=== PATIENT | female | born 1955 | race Caucasian/White ===

== ENCOUNTER 2017-08-22 17:04 | Emergency (ER) | payer MEDICARE, SELFPAY ==
[2017-08-22 17:12] VITALS: BP 130/78; PULSE 101; RESP 20; TEMP 36.5; O2SAT 98; BMI 20.5
--- NOTE | 2017-08-22 18:18 | ED.DENTAL ---
HPI - Dental/Oral <CRYSTAL Augustin - Last Filed: 08/22/17 21:03> General Chief complaint: Dental/Oral Stated complaint: TEETH HURT Time Seen by Provider: 08/22/17 17:25 Source: patient Mode of arrival: ambulatory Limitations: no limitations History of Present Illness HPI Narrative: Patient presents with tooth pain. She is concerned about swelling of her right lower molars. She is afraid she is developing an infection. She has not seen a dentist for a long time. She states she is trying to get in with 1 in about 2 days. She denies fevers at this time. She complains severe pain. She denies nausea or vomiting. She states she feels like her right lower jaw is swollen. She is specially concerned because she is on Enbrel for her arthritis. Related Data Previous Rx's Medication Instructions Recorded penicillin V potassium 500 mg PO TID 10 Days #30 tab 08/22/17 tramadol 25 mg PO Q6H PRN #5 tab 08/22/17 Allergies Allergy/AdvReac Type Severity Reaction Status Date / Time No Known Drug Allergies Allergy Verified 08/22/17 17:20 Review of Systems <CRYSTAL Augustin - Last Filed: 08/22/17 21:03> Review of Systems GENERAL: Denies chills, fatigue, malaise, fever, sweats. HEENT: See HPI RESPIRATORY: Denies dyspnea, cough, wheezing, hemoptysis, sputum. CARDIOVASCULAR: Denies chest pain, palpitations, orthopnea, edema, GASTROINTESTINAL: Denies nausea, vomiting, abdominal pain, diarrhea, constipation, melena. : Denies dysuria, frequency, incontinence, hematuria, urinary retention. MUSCULOSKELETAL: denies weakness, joint pain, or bony pain SKIN: Denies rash, skin lesions, or other NEUROLOGIC: Denies weakness, headache, numbness, change in speech, confusion, seizures, incoordination. PSYCHIATRIC: No concerning psychosocial issues. 12 point review of systems is negative except for those stated above Exam <CRYSTAL Augustin - Last Filed: 08/22/17 21:03> Narrative Exam Narrative: GENERAL: This is a well-nourished, well-developed patient, sitting in chair and hallway. HEAD: Atraumatic. Normocephalic. No temporal or scalp tenderness. EYES: Pupils equal round and reactive. Extraocular motions intact. No scleral icterus. No injection or drainage. ENT: Nose without bleeding, purulent drainage or septal hematoma. Throat without erythema, tonsillar hypertrophy or exudate. Uvula midline. Airway patent. Noted to be missing molar on right lower side. Right gumline erythematous. No noted exudate. Painful to palpation at right lower gum line. Gum lines and jaw symmetrical. NECK: Trachea midline. No JVD or lymphadenopathy. Supple, nontender, no meningeal signs. CARDIOVASCULAR: Regular rate and rhythm without murmurs, gallops, or rubs. RESPIRATORY: Clear to auscultation. Breath sounds equal bilaterally. No wheezes, rales, or rhonchi. GASTROINTESTINAL: Abdomen soft, non-tender, nondistended. No hepato-splenomegaly, or palpable masses. No guarding. EXTREMITIES: No clubbing, cyanosis, or edema. No joint tenderness, effusion, or edema noted. BACK: Nontender without deformity or crepitance. No flank tenderness. NEURO: AOx3. SKIN: No rash or erythema. No erythema, ecchymosis or swelling noted right jawline. Initial Vital Signs Initial Vital Signs: Vital Signs Temperature 97.7 F 08/22/17 17:12 Pulse Rate 101 H 08/22/17 17:12 Respiratory Rate 20 08/22/17 17:12 Blood Pressure 130/78 H 08/22/17 17:12 Pulse Oximetry 98 08/22/17 17:12 <Velia Soriano DO - Last Filed: 08/23/17 07:41> Initial Vital Signs Initial Vital Signs: Vital Signs Temperature 97.7 F 08/22/17 17:12 Pulse Rate 101 H 08/22/17 17:12 Respiratory Rate 20 08/22/17 17:12 Blood Pressure 130/78 H 08/22/17 17:12 Pulse Oximetry 98 08/22/17 17:12 Course <TATI Augustin - Last Filed: 08/22/17 21:03> Hospital Course: Patient presents with right lower dental pain. Patient was examined, identifying erythematous gum line with slight swelling of the gum line. However her jawline is symmetrical to the other side. Vital Signs - 8 hr 08/22/17 17:12 Temperature 97.7 F Pulse Rate 101 H Respiratory Rate 20 Blood Pressure 130/78 H Pulse Oximetry 98 <Velia Soriano DO - Last Filed: 08/23/17 07:41> Vital Signs - 8 hr 08/22/17 17:12 Temperature 97.7 F Pulse Rate 101 H Respiratory Rate 20 Blood Pressure 130/78 H Pulse Oximetry 98 MDM - Dental/Oral <DARLENE Augustin-BC - Last Filed: 08/22/17 21:03> [facility] Narrative Medical decision making narrative: Given pain to palpation right gum line an erythematous gum line, will treat patient for dental abscess. There was no obvious abscess to be drained today. I have a low threshold for treatment given the medications that she is on. Will use penicillin t.i.d. as per up-to-date. Strongly suggest follow-up with dentist as planned in a few days. Discussed return precautions of fever, nausea, vomiting, diarrhea, swelling of jaw line. She was afebrile and hemodynamically stable in the emergency department. I did give her a small pain medication prescription for the pain. Discharge Plan Departure Patient Disposition: Home, Self-Care Clinical Impression: Dental abscess Discharge Date/Time: 08/22/17 18:35 Interventions: ED Discharge Assessment Last Done: 08/22/17 18:35 Instructions: Tooth Abscess Activity Restrictions/Additional Instructions: I am starting you on antibiotics for an infection. However there is nothing palpable to drain. Please take the penicillin as discussed 3 times a day. I also gave you a small prescription for pain medication call tramadol. This is narcotic please do not take this and drive. Continue ice and [id number] pain medications as able. Please follow-up with a dentist. Prescriptions: New penicillin V potassium 500 mg tablet 500 mg PO TID 10 Days Qty: 30 RF: 0 tramadol 50 mg tablet 25 mg PO Q6H PRN (Reason: pain) Qty: 5 RF: 0 <Velia Soriano DO - Last Filed: 08/23/17 07:41> Cosign ED Attending Cosignature Attestation: I was immediately available in the department for consultation. Documentation has been reviewed. I agree with assessment and plan.
--- NOTE | 2017-08-22 18:27 | ED_ITS ---
HPI - Dental/Oral <CRYSTAL Augustin - Last Filed: 08/22/17 21:03> General Chief complaint: Dental/Oral Stated complaint: TEETH HURT Time Seen by Provider: 08/22/17 17:25 Source: patient Mode of arrival: ambulatory Limitations: no limitations History of Present Illness HPI Narrative: Patient presents with tooth pain. She is concerned about swelling of her right lower molars. She is afraid she is developing an infection. She has not seen a dentist for a long time. She states she is trying to get in with 1 in about 2 days. She denies fevers at this time. She complains severe pain. She denies nausea or vomiting. She states she feels like her right lower jaw is swollen. She is specially concerned because she is on Enbrel for her arthritis. Related Data Previous Rx's Medication Instructions Recorded penicillin V potassium 500 mg PO TID 10 Days #30 tab 08/22/17 tramadol 25 mg PO Q6H PRN #5 tab 08/22/17 Allergies Allergy/AdvReac Type Severity Reaction Status Date / Time No Known Drug Allergies Allergy Verified 08/22/17 17:20 Review of Systems <CRYSTAL Augustin - Last Filed: 08/22/17 21:03> Review of Systems GENERAL: Denies chills, fatigue, malaise, fever, sweats. HEENT: See HPI RESPIRATORY: Denies dyspnea, cough, wheezing, hemoptysis, sputum. CARDIOVASCULAR: Denies chest pain, palpitations, orthopnea, edema, GASTROINTESTINAL: Denies nausea, vomiting, abdominal pain, diarrhea, constipation, melena. : Denies dysuria, frequency, incontinence, hematuria, urinary retention. MUSCULOSKELETAL: denies weakness, joint pain, or bony pain SKIN: Denies rash, skin lesions, or other NEUROLOGIC: Denies weakness, headache, numbness, change in speech, confusion, seizures, incoordination. PSYCHIATRIC: No concerning psychosocial issues. 12 point review of systems is negative except for those stated above Exam <CRYSTAL Augustin - Last Filed: 08/22/17 21:03> Narrative Exam Narrative: GENERAL: This is a well-nourished, well-developed patient, sitting in chair and hallway. HEAD: Atraumatic. Normocephalic. No temporal or scalp tenderness. EYES: Pupils equal round and reactive. Extraocular motions intact. No scleral icterus. No injection or drainage. ENT: Nose without bleeding, purulent drainage or septal hematoma. Throat without erythema, tonsillar hypertrophy or exudate. Uvula midline. Airway patent. Noted to be missing molar on right lower side. Right gumline erythematous. No noted exudate. Painful to palpation at right lower gum line. Gum lines and jaw symmetrical. NECK: Trachea midline. No JVD or lymphadenopathy. Supple, nontender, no meningeal signs. CARDIOVASCULAR: Regular rate and rhythm without murmurs, gallops, or rubs. RESPIRATORY: Clear to auscultation. Breath sounds equal bilaterally. No wheezes , rales, or rhonchi. GASTROINTESTINAL: Abdomen soft, non-tender, nondistended. No hepato-splenomegaly , or palpable masses. No guarding. EXTREMITIES: No clubbing, cyanosis, or edema. No joint tenderness, effusion, or edema noted. BACK: Nontender without deformity or crepitance. No flank tenderness. NEURO: AOx3. SKIN: No rash or erythema. No erythema, ecchymosis or swelling noted right jawline. Initial Vital Signs Initial Vital Signs: Vital Signs Temperature 97.7 F 08/22/17 17:12 Pulse Rate 101 H 08/22/17 17:12 Respiratory Rate 20 08/22/17 17:12 Blood Pressure 130/78 H 08/22/17 17:12 Pulse Oximetry 98 08/22/17 17:12 <Velia Soriano DO - Last Filed: 08/23/17 07:41> Initial Vital Signs Initial Vital Signs: Vital Signs Temperature 97.7 F 08/22/17 17:12 Pulse Rate 101 H 08/22/17 17:12 Respiratory Rate 20 08/22/17 17:12 Blood Pressure 130/78 H 08/22/17 17:12 Pulse Oximetry 98 08/22/17 17:12 Course <TATI Augustin - Last Filed: 08/22/17 21:03> Hospital Course: Patient presents with right lower dental pain. Patient was examined, identifying erythematous gum line with slight swelling of the gum line. However her jawline is symmetrical to the other side. Vital Signs - 8 hr 08/22/17 17:12 Temperature 97.7 F Pulse Rate 101 H Respiratory Rate 20 Blood Pressure 130/78 H Pulse Oximetry 98 <Velia Soriano DO - Last Filed: 08/23/17 07:41> Vital Signs - 8 hr 08/22/17 17:12 Temperature 97.7 F Pulse Rate 101 H Respiratory Rate 20 Blood Pressure 130/78 H Pulse Oximetry 98 MDM - Dental/Oral <DARLENE Augustin-BC - Last Filed: 08/22/17 21:03> [facility] Narrative Medical decision making narrative: Given pain to palpation right gum line an erythematous gum line, will treat patient for dental abscess. There was no obvious abscess to be drained today. I have a low threshold for treatment given the medications that she is on. Will use penicillin t.i.d. as per up-to- date. Strongly suggest follow-up with dentist as planned in a few days. Discussed return precautions of fever, nausea, vomiting, diarrhea, swelling of jaw line. She was afebrile and hemodynamically stable in the emergency department. I did give her a small pain medication prescription for the pain. Discharge Plan Departure Patient Disposition: Home, Self-Care Clinical Impression: Dental abscess Discharge Date/Time: 08/22/17 18:35 Interventions: ED Discharge Assessment Last Done: 08/22/17 18:35 Instructions: Tooth Abscess Activity Restrictions/Additional Instructions: I am starting you on antibiotics for an infection. However there is nothing palpable to drain. Please take the penicillin as discussed 3 times a day. I also gave you a small prescription for pain medication call tramadol. This is narcotic please do not take this and drive. Continue ice and [id number] pain medications as able. Please follow-up with a dentist. Prescriptions: New penicillin V potassium 500 mg tablet 500 mg PO TID 10 Days Qty: 30 RF: 0 tramadol 50 mg tablet 25 mg PO Q6H PRN (Reason: pain) Qty: 5 RF: 0 <Velia Soriano DO - Last Filed: 08/23/17 07:41> Cosign ED Attending Cosignature Attestation: I was immediately available in the department for consultation. Documentation has been reviewed. I agree with assessment and plan.
== END 2017-08-22 18:35 | disposition home or self-care (01) ==
PROVIDERS: Emergency Provider Nurse Practitioner Family
DX: K04.7 Periapical abscess without sinus (principal)
CPT/HCPCS: 99282

== ENCOUNTER 2022-12-07 16:01 | Emergency (ER) | payer MEDICARE, MEDICAID, SELFPAY ==
[2022-12-07 16:04] VITALS: BP 143/65; PULSE 83; RESP 18; TEMP 37.2; O2SAT 97; BMI 20.5
[2022-12-07 16:50] LABS: Add Manual Diff / Slide Review NO; Basophils Absolute Auto 0 /uL (0-100); Basophils Percent Auto 0.8 % (0-2); Eosinophils Absolute Auto 100 /uL (0-450); Eosinophils Percent Auto 2.8 % (2-4); Hematocrit 42.8 % (36-46); Hemoglobin 14.9 g/dL (12.0-16.0); Lymphocytes Absolute Auto 1000 /uL (1100-4500); Lymphocytes Percent Auto 26.3 % (25-40); Mean Corpuscular HGB Conc 34.9 % (30-36); Mean Corpuscular Hemoglobin 34.1 PG (26-34); Mean Corpuscular Volume 97.6 fL (80-100); Monocytes Absolute Auto 500 /uL (0-900); Monocytes Percent Auto 12.8 % (3-14); Neutrophils Absolute Auto 2200 /uL (1500-7000); Neutrophils Percent Auto 57.3 % (50-75); Platelet Count 142 X10^3/uL (150-400); Red Blood Cell Count 4.38 X10^6/uL (4.0-5.2); Red Cell Distribution Width 13.1 % (11.6-14.8); White Blood Cell Count 3.8 X10^3/uL (4.5-11.0)
[2022-12-07 16:55] LABS: Alanine Aminotransferase 27 IU/L (<35); Albumin 4.4 g/dL (3.5-5.0); Albumin Globulin Ratio 1.7 (1.0-2.8); Alkaline Phosphatase 63 U/L (38-126); Aspartate Aminotransferase 30 IU/L (14-36); BUN Creatinine Ratio 19.3 (6-22); Bilirubin Total 0.4 mg/dL (0.2-1.3); Blood Urea Nitrogen 11 mg/dL (7-17); Carbon Dioxide 29 mmol/L (22-32); Chloride 105 mmol/L (98-107); Estimated Glomerular Filt Rate > 60 mL/min (>60); Globulin 2.6 g/dL (1.7-4.1); Glucose 82 mg/dL (80-110); HEMOLYSIS < 15 (0-50); Lipase 142 U/L (23-300); Potassium 4.2 mmol/L (3.4-5.1); Sodium 139 mmol/L (137-145)
--- NOTE | 2022-12-07 17:26 | DI.CT.S_ITS ---
PROCEDURE: CT ANGIO CHEST PE PROTOCOL INDICATIONS: recent lung cancer, new painful lump on posterior ribs TECHNIQUE: After the administration of intravenous contrast, 2 mm thick sections acquired from the pulmonary apices to the posterior costophrenic angles. 3-dimensional maximum intensity projection (MIP) coronal and sagittal reformats were then acquired through the thorax. For radiation dose reduction, the following was used: automated exposure control, adjustment of mA and/or kV according to patient size. COMPARISON: None. FINDINGS: Image quality: Excellent. Pulmonary arteries: Pulmonary arteries are normal in size, and demonstrate no intraluminal filling defects to suggest central pulmonary embolism. Lungs and pleura: Emphysematous changes as well as reticular opacities consistent with likely fibrotic change are present. Prominent appearance of honeycombing is present in the left lower lobe. Small patchy areas of superimposed opacity are present. No pleural effusions or pneumothorax. Central and peripheral airways are patent. Mediastinum: Heart size is enlarged with minimal pericardial effusion. No mediastinal or hilar adenopathy. Thoracic aorta is normal in caliber and enhancement. Esophagus is normal in caliber, without hiatal hernia. Bones and chest wall: No suspicious bony lesions. Ribs and thoracic spine appear intact throughout. Thyroid gland demonstrates scattered low-attenuation foci predominantly within the left lobe. No priors are available for comparison.. No axillary or supraclavicular adenopathy. Abdomen: Visualized upper abdominal solid organs appear normal in the early arterial phase of enhancement. IMPRESSION: Chronic pulmonary changes as described above. Mild appearance of patchy opacity superimposed in the left base. This could be related to chronic change. However, development of pneumonia, atelectasis or potentially malignancy cannot be definitively excluded. Short interval imaging follow-up is recommended. No pulmonary embolism. Dictated by: Darcy Luke M.D. on 12/07/2022 at 18:21 Approved by: Darcy Luke M.D. on 12/07/2022 at 18:23
[2022-12-07 17:43] VITALS: BP 177/96; PULSE 73
[2022-12-07 18:00] VITALS: BP 156/85; PULSE 67; O2SAT 97
[2022-12-07] MEDS: MORPHINE 2 MG/ML INJ IV (18:01)
[2022-12-07] MEDS: ONDANSETRON 4 MG/2 ML INJ IV (18:01)
[2022-12-07] MEDS: KETOROLAC 30 MG/ML VIAL 15 MG IV (18:01)
[2022-12-07] MEDS: SODIUM CHLORIDE 0.9% 500 ML 1000 ML IV (18:02)
--- NOTE | 2022-12-07 18:15 | ED.BACK ---
HPI - Back Pain/Injury <Mary Beth Rizvi PA-C - Last Filed: 12/07/22 18:59> General Chief Complaint: Back Pain/Injury Stated Complaint: sent by hospital for special care/back pain/lump Time Seen by Provider: 12/07/22 17:15 Source: patient History of Present Illness HPI Narrative: Patient is a 67-year-old female with a history of lung cancer which she reports is in the left lower lobe. She received radiation in June of this year and is due for a PET scan because she reports the radiation was not as successful as he had hoped. She uses injectable medications to control her rheumatoid arthritis, which make her immunosuppressed. She has had 2 weeks of left posterior rib pain worse with deep breaths or with twisting movements. She does not remember any particular incident or trauma that started this. It started while she was on an airplane and has continued ever since. She has noticed a lump that is slowly growing in size over the site of pain. She is tried Tylenol and ibuprofen occasionally but they do not seem to help. She denies any fever, new shortness of breath, chest pain, nausea vomiting, urinary symptoms. She presented to the walk-in clinic today for assessment but was sent to the emergency room for further investigation. Related Data Home Medications Medication Instructions Recorded Confirmed cyclobenzaprine 10 mg tablet 10 mg PO BID 12/13/17 12/07/22 hydroxychloroquine 200 mg tablet 200 mg PO DAILY 12/13/17 12/07/22 ibuprofen 600 mg tablet 600 mg PO TID 12/13/17 12/07/22 pregabalin 75 mg capsule (Lyrica) 75 mg PO BID 12/13/17 12/07/22 sulfasalazine 500 mg tablet 1 gram PO DAILY 12/13/17 12/07/22 lisinopril 10 mg tablet 10 mg PO DAILY 12/07/22 12/07/22 sulfasalazine 500 mg 1,000 mg PO BID 12/07/22 12/07/22 tablet,delayed release tocilizumab [Actemra ACTPen] SUBCUT 12/07/22 12/07/22 trazodone 100 mg tablet 100 - 200 mg PO ONCE PM insomnia 12/07/22 12/07/22 venlafaxine 225 mg tablet,extended 225 mg PO DAILY depressive disorder 12/07/22 12/07/22 release 24 hr Allergies Allergy/AdvReac Type Severity Reaction Status Date / Time No Known Drug Allergies Allergy Verified 12/07/22 15:36 Review of Systems <Mary Beth Rizvi PA-C - Last Filed: 12/07/22 18:59> Review of Systems ROS Unobtainable: All systems reviewed & are unremarkable except as noted in HPI and below Patient History <Mary Beth Rizvi PA-C - Last Filed: 12/07/22 18:59> Medical History 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 Well-developed patient, in no distress. NEURO: AOx3. HEAD: Atraumatic. Normocephalic. EYES: Pupils equal round and reactive. Extraocular motions intact. No scleral icterus. No injection or drainage. ENT: Nose without bleeding or purulent drainage. Airway patent. CARDIOVASCULAR: Regular rate and rhythm without murmurs, gallops, or rubs. RESPIRATORY: Left lower lobe crackles, no significant dyspnea with conversation. BACK: Soft swollen lump over left posterior lower ribs, no erythema or warmth concerning for cellulitis. No fluctuance. No midline spinal tenderness. EXTREMITIES: No edema or joint tenderness. SKIN: No rash or erythema of visible areas Initial Vital Signs Initial Vital Signs: Vital Signs Temperature 98.9 F 12/07/22 16:04 Pulse Rate 83 12/07/22 16:04 Respiratory Rate 18 12/07/22 16:04 Blood Pressure 143/65 H 12/07/22 16:04 Pulse Oximetry 97 12/07/22 16:04 Oxygen Delivery Method Room Air 12/07/22 16:04 <El Cordon MD - Last Filed: 12/15/22 08:45> Initial Vital Signs Initial Vital Signs: Vital Signs Temperature 98.9 F 12/07/22 16:04 Pulse Rate 83 12/07/22 16:04 Respiratory Rate 18 12/07/22 16:04 Blood Pressure 143/65 H 12/07/22 16:04 Pulse Oximetry 97 12/07/22 16:04 Oxygen Delivery Method Room Air 12/07/22 16:04 Course <Mary Beth Rizvi PA-C - Last Filed: 12/07/22 18:59> Orders Ordered: Discontinued Medications Sodium Chloride (Normal Saline 0.9%) 500 mls @ 1,000 mls/hr IV BOLUS ONE Stop: 12/07/22 17:55 Last Infusion: 12/07/22 19:07 Dose: 0 mls/hr Documented By: Admin: 12/07/22 18:02 Dose: 1,000 mls/hr Documented By: EMMANUELLE Ketorolac Tromethamine (Ketorolac 30 Mg/Ml Vial) 15 mg IV NOW ONE Stop: 12/07/22 17:27 Last Admin: 12/07/22 18:01 Dose: 15 mg Documented By: EMMANUELLE Morphine Sulfate (Morphine 2 Mg/Ml Inj) 2 mg IV NOW ONE Stop: 12/07/22 17:27 Last Admin: 12/07/22 18:01 Dose: 2 mg Documented By: EMMANUELLE Ondansetron HCl (Ondansetron 4 Mg Odt) 4 mg PO NOW PRN PRN Reason: Nausea And Vomiting Ondansetron HCl (Ondansetron 4 Mg/2 Ml Inj) 4 mg IV NOW PRN PRN Reason: Nausea And Vomiting Last Admin: 12/07/22 18:01 Dose: 4 mg Documented By: NL Vital Signs Vital signs: Vital Signs - 8 hr 12/07/22 16:04 Temperature 98.9 F Pulse Rate 83 Respiratory Rate 18 Blood Pressure 143/65 H Pulse Oximetry 97 Oxygen Delivery Method Room Air <El Cordon MD - Last Filed: 12/15/22 08:45> Orders Ordered: Discontinued Medications Sodium Chloride (Normal Saline 0.9%) 500 mls @ 1,000 mls/hr IV BOLUS ONE Stop: 12/07/22 17:55 Last Infusion: 12/07/22 19:07 Dose: 0 mls/hr Documented By: Admin: 12/07/22 18:02 Dose: 1,000 mls/hr Documented By: EMMANUELLE Ketorolac Tromethamine (Ketorolac 30 Mg/Ml Vial) 15 mg IV NOW ONE Stop: 12/07/22 17:27 Last Admin: 12/07/22 18:01 Dose: 15 mg Documented By: EMMANUELLE Morphine Sulfate (Morphine 2 Mg/Ml Inj) 2 mg IV NOW ONE Stop: 12/07/22 17:27 Last Admin: 12/07/22 18:01 Dose: 2 mg Documented By: EMMANUELLE Ondansetron HCl (Ondansetron 4 Mg Odt) 4 mg PO NOW PRN PRN Reason: Nausea And Vomiting Ondansetron HCl (Ondansetron 4 Mg/2 Ml Inj) 4 mg IV NOW PRN PRN Reason: Nausea And Vomiting Last Admin: 12/07/22 18:01 Dose: 4 mg Documented By: EMMANUELLE Vital Signs Vital signs: Vital Signs - 8 hr 12/07/22 16:04 Temperature 98.9 F Pulse Rate 83 Respiratory Rate 18 Blood Pressure 143/65 H Pulse Oximetry 97 Oxygen Delivery Method Room Air MDM - Back Pain/Injury <Mary Beth Rizvi PA-C - Last Filed: 12/07/22 18:59> Lab Data 12/07/22 16:07 12/07/22 16:07 Labs: Lab Results 12/07/22 12/07/22 Range/Units 16:07 16:07 WBC 3.8 L (4.5-11.0) X10^3/uL RBC 4.38 (4.0-5.2) X10^6/uL Hgb 14.9 (12.0-16.0) g/dL Hct 42.8 (36-46) % MCV 97.6 (80-100) fL MCH 34.1 H (26-34) PG MCHC 34.9 (30-36) % RDW 13.1 (11.6-14.8) % Plt Count 142 L (150-400) X10^3/uL Neut % (Auto) 57.3 (50-75) % Lymph % (Auto) 26.3 (25-40) % [place] % (Auto) 12.8 (3-14) % Eos % (Auto) 2.8 (2-4) % Baso % (Auto) 0.8 (0-2) % Neut # (Auto) 2200 (3322-7325) /uL Lymph # (Auto) 1000 L (6064-4044) /uL [place] # (Auto) 500 (0-900) /uL Eos # (Auto) 100 (0-450) /uL Baso # (Auto) 0 (0-100) /uL Sodium 139 (137-145) mmol/L Potassium 4.2 (3.4-5.1) mmol/L Chloride 105 (98-107) mmol/L Carbon Dioxide 29 (22-32) mmol/L BUN 11 (7-17) mg/dL Creatinine 0.57 (0.52-1.04) mg/dL Estimated GFR > 60 (>60) mL/min BUN/Creatinine Ratio 19.3 (6-22) Glucose 82 (80-110) mg/dL Calcium 10.0 (8.4-10.2) mg/dL Total Bilirubin 0.4 (0.2-1.3) mg/dL AST 30 (14-36) IU/L ALT 27 (<35) IU/L Alkaline Phosphatase 63 (38-126) U/L Total Protein 7.0 (6.3-8.2) g/dL Albumin 4.4 (3.5-5.0) g/dL Globulin 2.6 (1.7-4.1) g/dL Albumin/Globulin Ratio 1.7 (1.0-2.8) Lipase 142 (23-300) U/L Imaging Data CT scan - chest: Radiologist's Impression: PROCEDURE:? CT ANGIO CHEST PE PROTOCOL ? INDICATIONS:? recent lung cancer, new painful lump on posterior ribs ? TECHNIQUE:? After the administration of intravenous contrast, 2 mm thick sections acquired from the pulmonary apices to the posterior costophrenic angles.? 3-dimensional maximum intensity projection (MIP) coronal and sagittal reformats were then acquired through the thorax.? For radiation dose reduction, the following was used:? automated exposure control, adjustment of mA and/or kV according to patient size.? ? COMPARISON:? None. ? FINDINGS:? Image quality:? Excellent.? ? Pulmonary arteries:? Pulmonary arteries are normal in size, and demonstrate no intraluminal filling defects to suggest central pulmonary embolism.? ? Lungs and pleura:? Emphysematous changes as well as reticular opacities consistent with likely fibrotic change are present.? Prominent appearance of honeycombing is present in the left lower lobe.? Small patchy areas of superimposed opacity are present.? No pleural effusions or pneumothorax.? Central and peripheral airways are patent.? ? Mediastinum:? Heart size is enlarged with minimal pericardial effusion.? No mediastinal or hilar adenopathy.? Thoracic aorta is normal in caliber and enhancement.? Esophagus is normal in caliber, without hiatal hernia.? ? Bones and chest wall:? No suspicious bony lesions.? Ribs and thoracic spine appear intact throughout.? Thyroid gland demonstrates scattered low-attenuation foci predominantly within the left lobe.? No priors are available for comparison..? No axillary or supraclavicular adenopathy.? ? Abdomen:? Visualized upper abdominal solid organs appear normal in the early arterial phase of enhancement.? ? IMPRESSION:? ? Chronic pulmonary changes as described above.? Mild appearance of patchy opacity superimposed in the left base.? This could be related to chronic change.? However, development of pneumonia, atelectasis or potentially malignancy cannot be definitively excluded.? Short interval imaging follow-up is recommended. ? No pulmonary embolism. ? ? Dictated by: Darcy Luke M.D. on 12/07/2022 at 18:21 ? ? Approved by: Darcy Luke M.D. on 12/07/2022 at 18:23 ? MDM Narrative Medical decision making narrative: Multiple etiologies for patient's symptoms considered including, but not limited to: Cancer invasion of the chest wall, rib fractures, abscess, complication of radiation therapy. Labs Show mild leukopenia and lymphocytopenia, likely related to her rheumatoid arthritis treatment and/or cancer treatment. No acute abnormalities of clinical significance to today's problem. CTA PE study completed after discussion with Dr. Cordon and does not show any PE or lesion in the posterior chest wall. It does show changes consistent with emphysema, fibrosis and lung cancer. Advised pain management with patient, to include ibuprofen, tylenol and lidocaine patches. Suggested she follow-up with her oncologist to investigate whether the symptoms maybe secondary to her lung cancer or radiation. Patient's symptoms improved over duration of stay with above-stated therapies. Findings and discharge diagnosis discussed with patient/family followed by verbalization of understanding Return precautions discussed with patient/family whom verbalize understanding of diagnosis and plan <El Cordon MD - Last Filed: 12/15/22 08:45> Lab Data Labs: Lab Results 12/07/22 12/07/22 Range/Units 16:07 16:07 WBC 3.8 L (4.5-11.0) X10^3/uL RBC 4.38 (4.0-5.2) X10^6/uL Hgb 14.9 (12.0-16.0) g/dL Hct 42.8 (36-46) % MCV 97.6 (80-100) fL MCH 34.1 H (26-34) PG MCHC 34.9 (30-36) % RDW 13.1 (11.6-14.8) % Plt Count 142 L (150-400) X10^3/uL Neut % (Auto) 57.3 (50-75) % Lymph % (Auto) 26.3 (25-40) % [place] % (Auto) 12.8 (3-14) % Eos % (Auto) 2.8 (2-4) % Baso % (Auto) 0.8 (0-2) % Neut # (Auto) 2200 (9599-7095) /uL Lymph # (Auto) 1000 L (1882-3496) /uL [place] # (Auto) 500 (0-900) /uL Eos # (Auto) 100 (0-450) /uL Baso # (Auto) 0 (0-100) /uL Sodium 139 (137-145) mmol/L Potassium 4.2 (3.4-5.1) mmol/L Chloride 105 (98-107) mmol/L Carbon Dioxide 29 (22-32) mmol/L BUN 11 (7-17) mg/dL Creatinine 0.57 (0.52-1.04) mg/dL Estimated GFR > 60 (>60) mL/min BUN/Creatinine Ratio 19.3 (6-22) Glucose 82 (80-110) mg/dL Calcium 10.0 (8.4-10.2) mg/dL Total Bilirubin 0.4 (0.2-1.3) mg/dL AST 30 (14-36) IU/L ALT 27 (<35) IU/L Alkaline Phosphatase 63 (38-126) U/L Total Protein 7.0 (6.3-8.2) g/dL Albumin 4.4 (3.5-5.0) g/dL Globulin 2.6 (1.7-4.1) g/dL Albumin/Globulin Ratio 1.7 (1.0-2.8) Lipase 142 (23-300) U/L Discharge Plan Departure Patient Disposition: Home Clinical Impression: Lump of skin of back Instructions: DI for Back Spasm Activity Restrictions/Additional Instructions: *We did several investigations today to look into why you have a lump on your back. Your blood work does not look like you have an infection. The CT scan does not show any fluid collection or mass that would be causing this. Does not show any broken ribs. I suggest you try symptomatic care with ice or heat, Tylenol or ibuprofen, or lidocaine patches which you can buy [id number] at the drug store. I would contact your oncologist office and ask to have your CT scan from today transferred so they can reviewed at your next appointment and discuss whether this could possibly be related to your oncology care. Please return to the emergency department if you develop chest pain, new worsening shortness of breath or other concerning symptoms. It was a pleasure meeting today and I hope you feel better soon. *What to do: *Please continue to take your regular medications as directed. [ ] New medication prescriptions sent to your pharmacy: [ ] [ ] New medication written as a paper prescription [X] No new medications given *Please follow up with your primary care provider in 2-3 days, call for an appointment. Let them know you were seen in the Emergency Department and that we ask that you be seen in follow up. We will electronically transmit a record of today's note if your PCP is in our system *If you do not have a primary care provider please contact the [facility] Resource line at [phone]. They will ask some questions about your medical history and help get you set up with a doctor in the community. *Return to Emergency Department if you should have any new, worsening or concerning symptoms, such as [fever greater than 101 F, shaking chills, worsening pain, persistent vomiting or other concerning symptoms]. Prescriptions: No Action sulfasalazine 500 mg tablet 1 gram PO DAILY hydroxychloroquine 200 mg tablet 200 mg PO DAILY pregabalin [Lyrica] 75 mg capsule 75 mg PO BID cyclobenzaprine 10 mg tablet 10 mg PO BID ibuprofen 600 mg tablet 600 mg PO TID sulfasalazine 500 mg tablet,delayed release (DR/EC) 1,000 mg PO BID venlafaxine 225 mg tablet extended release 24hr 225 mg PO DAILY lisinopril 10 mg tablet 10 mg PO DAILY trazodone 100 mg tablet 100 - 200 mg PO ONCE PM tocilizumab [Actemra ACTPen] SUBCUT Referrals: Miscellaneous,DoctorMD [Primary Care Provider] - Stand Alone Forms: Patient Portal/API <El Cordon MD - Last Filed: 12/15/22 08:45> Cosign ED Attending Cosignature Attestation: I was immediately available in the department for consultation. ?This documentation has been reviewed and I agree with assessment and plan. Supervised by El Cordon MD
[2022-12-07 18:30] VITALS: BP 148/87; PULSE 68; O2SAT 97
[2022-12-07 19:00] VITALS: PULSE 74; O2SAT 96
[2022-12-07 19:03] VITALS: BP 148/80; PULSE 74; O2SAT 97
== END 2022-12-07 19:09 | disposition home or self-care (01) ==
PROVIDERS: Emergency Medicine; Emergency Provider Physician Assistant
DX: R22.2 Localized swelling, mass and lump, trunk (principal); R10.9 Unspecified abdominal pain
CPT/HCPCS: 36415; 71275; 80053; 83690; 85025; 93005; 93010; 96361; 96374; 96375; 99284; J1885; J2270; J2405; Q9967

== ENCOUNTER 2025-01-03 10:17 | Emergency (ER) | payer MEDICARE, MEDICAID, SELFPAY ==
[2025-01-03] VITALS (26 sets, daily range): BP systolic 129–196; BP diastolic 80–132; PULSE 66–91; RESP 22–46; TEMP 37; O2SAT 93–100
--- NOTE | 2025-01-03 10:22 | DI.CT.S_ITS ---
PROCEDURE: CT ANGIO HEAD AND NECK INDICATIONS: acute stroke TECHNIQUE: After the administration of intravenous contrast, 1 mm thick sections acquired from the aortic arch through the [place]. 3-dimensional pttiamd-buuhjyxhi-ijcpkngfrc (MIP) and/or volume rendering reformats were acquired of the central intracranial vasculature and neck separately. For radiation dose reduction, the following was used: automated exposure control, adjustment of mA and/or kV according to patient size. COMPARISON: [facility], CT, CT STROKE, 01/03/2025, 10:37. FINDINGS: Image quality: Diagnostic. Cerebral CT Angiogram: Internal carotid arteries: No acute findings. Intracranial ICA are patent with no significant stenosis. No occlusion. No aneurysm. 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 The distal right ELIDA is fed via a patent anterior communicating artery. No significant stenosis. No occlusion. No aneurysm. Middle cerebral arteries: Unremarkable. No significant stenosis. No occlusion. No aneurysm. Posterior cerebral arteries: type origin of the right [employer], a normal anatomic variant. No significant stenosis. No occlusion. No aneurysm. Basilar artery: Unremarkable. No significant stenosis. No occlusion. No aneurysm. Vertebral arteries: Unremarkable as visualized. Dural venous sinuses: Unremarkable given phase of enhancement. Other: Please see the separately dictated report from the noncontrast CT of the head performed at the same time. No abnormal intracranial arterial-phase enhancement. Mucous retention cyst in the right maxillary sinus. Neck CT Angiogram: Internal carotid arteries: Unremarkable. No significant stenosis. No dissection or occlusion. Common carotid arteries: Unremarkable. No significant stenosis. No dissection or occlusion. External carotid arteries: Unremarkable. No occlusion. Vertebral arteries: Unremarkable. No significant stenosis. No dissection or occlusion. Aortic Arch and Mediastinum: Partially visualized aortic arch unremarkable without evidence of aneurysm. Origins of the great vessels unremarkable. Other: Pleural-parenchymal scarring at the right lung apex with superimposed surgical clips. Biapical centrilobular and paraseptal emphysema. Multiple mildly enlarged mediastinal lymph nodes are present, for example measuring 1.1 cm in short axis in the precarinal region (2/338). 1.1 cm left thyroid nodule does not require dedicated imaging follow-up based on ACR guidelines. Multilevel degenerative changes in the included spine. IMPRESSION: No significant intracranial arterial abnormality is seen. No significant abnormality is seen within the arteries of the neck. Postsurgical changes in the right lung apex. Mildly enlarged mediastinal lymph nodes are nonspecific. Any quantitative measurements of stenosis were performed using NASCET criteria. Approved by: Enrique Enrique M.D. on 01/03/2025 at 11:12
--- NOTE | 2025-01-03 10:22 | DI.CT.S_ITS ---
PROCEDURE: CT STROKE INDICATIONS: acute stroke TECHNIQUE: Noncontrast 4.5 mm thick angled axial sections acquired from the foramen magnum to the vertex, with coronal reformats. For radiation dose reduction, the following was used: automated exposure control, adjustment of mA and/or kV according to patient size. COMPARISON: None. FINDINGS: Image quality: Diagnostic. CSF spaces: Basal cisterns are patent. No extra-axial fluid collections. The ventricles are symmetric in size and shape. Brain: No acute intracranial hemorrhage or mass effect. There is cerebral volume loss, with resultant ventricular and sulcal prominence. There are periventricular and deep white matter chronic small vessel ischemic changes. There is intracranial internal carotid artery atherosclerosis. Skull and face: Calvarium and visualized facial bones appear intact, without suspicious lesions. Sinuses: Visualized sinuses and mastoids are clear. IMPRESSION: No acute intracranial pathology. Findings were discussed with the referring provider, Dr. Regan, by telephone on 01/03/2025 at 10:45 AM. This study fulfills neurological imaging criteria for inclusion or exclusion of acute stroke therapies based on available published neurological guidelines. Approved by: Enrique Enrique M.D. on 01/03/2025 at 10:46
--- NOTE | 2025-01-03 10:24 | ED.NEUROSD ---
HPI - Neuro Symptoms/Deficit <Sean Regan MD - Last Filed: 01/20/25 08:03> General Chief Complaint: Altered Mental Status Stated Complaint: AMS Time Seen by Provider: 01/03/25 10:21 History of Present Illness HPI Narrative: This is a 61-year-old female with a known past medical history brought in by medics with altered mental status and neurologic deficits. Her last known well as unknown per medics ?sometime yesterday?. The patient was found outside of her apartment complex in the area were smokers [place]. It is unknown how long she had been there however I strongly doubt that she spent the night out there. The patient is unable to speak. At this point I do not have any available past medical history medications allergies etc.. Related Data Home Medications ?Medication ?Instructions ?Recorded ?Confirmed cyclobenzaprine 10 mg tablet 10 mg PO BID 12/13/17 12/07/22 hydroxychloroquine 200 mg tablet 200 mg PO DAILY 12/13/17 12/07/22 ibuprofen 600 mg tablet 600 mg PO TID 12/13/17 12/07/22 pregabalin 75 mg capsule (Lyrica) 75 mg PO BID 12/13/17 12/07/22 sulfasalazine 500 mg tablet 1 gram PO DAILY 12/13/17 12/07/22 lisinopril 10 mg tablet 10 mg PO DAILY 12/07/22 12/07/22 sulfasalazine 500 mg 1,000 mg PO BID 12/07/22 12/07/22 tablet,delayed release tocilizumab [Actemra ACTPen] SUBCUT 12/07/22 12/07/22 trazodone 100 mg tablet 100 - 200 mg PO ONCE PM insomnia 12/07/22 12/07/22 venlafaxine 225 mg tablet,extended 225 mg PO DAILY depressive disorder 12/07/22 12/07/22 release 24 hr Allergies Allergy/AdvReac Type Severity Reaction Status Date / Time No Known Drug Allergies Allergy Verified 01/06/25 11:02 Patient History <Sean Regan MD - Last Filed: 01/20/25 08:03> Medical History 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 Surgical History S/P lobectomy of lung Exam <Sean Regan MD - Last Filed: 01/20/25 08:03> Initial Vital Signs Initial Vital Signs: Vital Signs Temperature 98.6 F 01/03/25 10:35 Pulse Rate 85 01/03/25 10:35 Respiratory Rate 27 H 01/03/25 10:35 Blood Pressure 146/88 H 01/03/25 10:35 Pulse Oximetry 95 01/03/25 10:35 Oxygen Delivery Method Room Air 01/03/25 10:35 <Velia Soriano DO - Last Filed: 01/03/25 20:50> Initial Vital Signs Initial Vital Signs: Vital Signs Temperature 98.6 F 01/03/25 10:35 Pulse Rate 85 01/03/25 10:35 Respiratory Rate 27 H 01/03/25 10:35 Blood Pressure 146/88 H 01/03/25 10:35 Pulse Oximetry 95 01/03/25 10:35 Oxygen Delivery Method Room Air 01/03/25 10:35 GENERAL: Alert nonverbal HEENT: Head atraumatic,EOMI, pupils reactive, face symmetric, [moist] mucous membranes CARDIOVASCULAR: Regular rate and rhythm without murmurs, rubs or gallops. RESPIRATORY: Breath sounds equal bilaterally, no wheezes rales or rhonchi. ABDOMEN: Soft, nontender. Normoactive bowel sounds all 4 quadrants. No guarding or rebound. EXTREMITIES: Normal range of motion, no clubbing or edema. Neurovascularly intact NEUROLOGICAL: Not talking your responding she is able to follow commands minor facial droop SKIN: Right big toe is blue she does have some right hand distal fingertip lesions multiple fingers Scores <Sean Regan MD - Last Filed: 01/20/25 08:03> NIH Stroke Scale Total NIH Stroke scale score: 14 <Velia Soriano DO - Last Filed: 01/03/25 20:50> NIH Stroke Scale Level of Conciousness: Not alert, but arousable by minor stim to obey, answer or respond Ask month/age: Answers neither question correctly, aphasic, stuporous, coma Open/close eyes, close hand: Performs both tasks correctly Best gaze horizontal: Partial gaze palsy, can be overcome by finger tracking, head turning Visual caro: No visual loss Facial palsy: Minor paralysis, flattened nasolabial fold, asymmetry on smiling Left arm drift: No drift for full 10 sec Right arm drift: Drifts down, not to bed Left leg drift: No drift for full 5 sec Right leg drift: Some effort against gravity, cannot maintain, drifts down to bed Limb ataxia: Absent Sensory on face/arms/legs: Mild to moderate sensory loss, can tell touch Best language: Severe aphasia, not much is understood, fragmented Dysarthria: Severe, unintelligible Extinction or inattention: Visual, tactile, auditory, spatial or personal inattention to stimuli Total NIH Stroke scale score: 14 Course <Sean Regan MD - Last Filed: 01/20/25 08:03> Orders Ordered: Discontinued Medications Aspirin (Aspirin Ec 325 Mg Tablet) 325 mg PO NOW ONE Stop: 01/03/25 11:54 Last Admin: 01/03/25 12:38 Dose: 325 mg Documented By: Diazepam (Diazepam 10 Mg/2 Ml Syringe) 2 mg IV NOW ONE Stop: 01/03/25 12:26 Last Admin: 01/03/25 13:22 Dose: 2 mg Documented By: BRITTANI Diazepam (Diazepam 10 Mg/2 Ml Syringe) 2 mg IV NOW ONE Stop: 01/03/25 14:01 Last Admin: 01/03/25 14:06 Dose: 2 mg Documented By: Droperidol (Droperidol 2.5 Mg/Ml Vial) 0.625 mg IV NOW ONE Stop: 01/03/25 14:27 Last Admin: 01/03/25 14:31 Dose: 0.625 mg Documented By: Sodium Chloride (Normal Saline 0.9%) 1,000 mls @ 1,000 mls/hr IV BOLUS ONE Stop: 01/03/25 13:24 Last Infusion: 01/03/25 14:05 Dose: Infused Documented By: Admin: 01/03/25 12:39 Dose: 1,000 mls/hr Documented By: MS Midazolam HCl (Midazolam 2 Mg/2 Ml Vial) 2 mg IV NOW ONE Stop: 01/03/25 14:27 Last Admin: 01/03/25 14:31 Dose: 2 mg Documented By: Midazolam HCl (Midazolam 2 Mg/2 Ml Vial) 4 mg IV NOW ONE Stop: 01/03/25 15:12 Last Admin: 01/03/25 18:31 Dose: 4 mg Documented By: MS Reevaluation(s) Reevaluation #1: At 11:45 a.m., patient is rechecked and I spoke with the family again. Discussed plan for admission pending MRI, discussed plan to give aspirin, patient is noted to be moving her right lower extremity she now keeps it off the bed with full strength she no longer has a pronator drift. Still has a bit of a right facial droop is still having difficulty with speech. Vital Signs Vital signs: Vital Signs - 8 hr 01/03/25 12:54 01/03/25 12:54 01/03/25 13:00 Pulse Rate 83 Respiratory Rate 44 H Blood Pressure 132/80 185/132 H Pulse Oximetry 94 Oxygen Delivery Method 01/03/25 13:00 01/03/25 13:30 01/03/25 13:30 Pulse Rate 91 H 77 Respiratory Rate 31 H 26 H Blood Pressure 148/80 H Pulse Oximetry 94 93 Oxygen Delivery Method 01/03/25 14:00 01/03/25 14:01 01/03/25 14:01 Pulse Rate 80 82 Respiratory Rate 38 H 37 H Blood Pressure 166/87 H Pulse Oximetry 94 94 Oxygen Delivery Method 01/03/25 14:30 01/03/25 14:30 01/03/25 14:37 Pulse Rate 73 Respiratory Rate 32 H Blood Pressure 141/85 H Pulse Oximetry 94 93 Oxygen Delivery Method 01/03/25 15:10 01/03/25 15:11 01/03/25 15:30 Pulse Rate 74 Respiratory Rate Blood Pressure 185/92 H 196/97 H Pulse Oximetry 100 Oxygen Delivery Method 01/03/25 15:30 01/03/25 15:43 01/03/25 15:43 Pulse Rate 77 82 Respiratory Rate Blood Pressure 193/110 H Pulse Oximetry 94 93 Oxygen Delivery Method 01/03/25 16:00 01/03/25 16:00 01/03/25 16:30 Pulse Rate 71 75 Respiratory Rate Blood Pressure 167/88 H Pulse Oximetry 93 94 Oxygen Delivery Method 01/03/25 16:30 01/03/25 17:00 01/03/25 17:00 Pulse Rate 71 Respiratory Rate Blood Pressure 158/81 H 165/88 H Pulse Oximetry 96 Oxygen Delivery Method 01/03/25 17:30 01/03/25 17:30 01/03/25 18:00 Pulse Rate 73 Respiratory Rate Blood Pressure 165/88 H 160/91 H Pulse Oximetry 95 Oxygen Delivery Method 01/03/25 18:00 01/03/25 18:30 01/03/25 18:30 Pulse Rate 66 72 Respiratory Rate Blood Pressure 171/97 H Pulse Oximetry 96 95 Oxygen Delivery Method 01/03/25 19:00 01/03/25 19:00 01/03/25 19:30 Pulse Rate 69 Respiratory Rate 24 Blood Pressure 178/87 H 172/93 H Pulse Oximetry 94 Oxygen Delivery Method 01/03/25 19:30 01/03/25 19:53 01/03/25 19:53 Pulse Rate 73 77 Respiratory Rate 22 25 H Blood Pressure 165/81 H Pulse Oximetry 95 94 Oxygen Delivery Method Room Air <Velia Soriano DO - Last Filed: 01/03/25 20:50> Orders Ordered: Discontinued Medications Aspirin (Aspirin Ec 325 Mg Tablet) 325 mg PO NOW ONE Stop: 01/03/25 11:54 Last Admin: 01/03/25 12:38 Dose: 325 mg Documented By: Diazepam (Diazepam 10 Mg/2 Ml Syringe) 2 mg IV NOW ONE Stop: 01/03/25 12:26 Last Admin: 01/03/25 13:22 Dose: 2 mg Documented By: BRITTANI Diazepam (Diazepam 10 Mg/2 Ml Syringe) 2 mg IV NOW ONE Stop: 01/03/25 14:01 Last Admin: 01/03/25 14:06 Dose: 2 mg Documented By: Droperidol (Droperidol 2.5 Mg/Ml Vial) 0.625 mg IV NOW ONE Stop: 01/03/25 14:27 Last Admin: 01/03/25 14:31 Dose: 0.625 mg Documented By: Sodium Chloride (Normal Saline 0.9%) 1,000 mls @ 1,000 mls/hr IV BOLUS ONE Stop: 01/03/25 13:24 Last Infusion: 01/03/25 14:05 Dose: Infused Documented By: Admin: 01/03/25 12:39 Dose: 1,000 mls/hr Documented By: Midazolam HCl (Midazolam 2 Mg/2 Ml Vial) 2 mg IV NOW ONE Stop: 01/03/25 14:27 Last Admin: 01/03/25 14:31 Dose: 2 mg Documented By: Midazolam HCl (Midazolam 2 Mg/2 Ml Vial) 4 mg IV NOW ONE Stop: 01/03/25 15:12 Last Admin: 01/03/25 18:31 Dose: 4 mg Documented By: Vital Signs Vital signs: Vital Signs - 8 hr 01/03/25 12:54 01/03/25 12:54 01/03/25 13:00 Pulse Rate 83 Respiratory Rate 44 H Blood Pressure 132/80 185/132 H Pulse Oximetry 94 Oxygen Delivery Method 01/03/25 13:00 01/03/25 13:30 01/03/25 13:30 Pulse Rate 91 H 77 Respiratory Rate 31 H 26 H Blood Pressure 148/80 H Pulse Oximetry 94 93 Oxygen Delivery Method 01/03/25 14:00 01/03/25 14:01 01/03/25 14:01 Pulse Rate 80 82 Respiratory Rate 38 H 37 H Blood Pressure 166/87 H Pulse Oximetry 94 94 Oxygen Delivery Method 01/03/25 14:30 01/03/25 14:30 01/03/25 14:37 Pulse Rate 73 Respiratory Rate 32 H Blood Pressure 141/85 H Pulse Oximetry 94 93 Oxygen Delivery Method 01/03/25 15:10 01/03/25 15:11 01/03/25 15:30 Pulse Rate 74 Respiratory Rate Blood Pressure 185/92 H 196/97 H Pulse Oximetry 100 Oxygen Delivery Method 01/03/25 15:30 01/03/25 15:43 01/03/25 15:43 Pulse Rate 77 82 Respiratory Rate Blood Pressure 193/110 H Pulse Oximetry 94 93 Oxygen Delivery Method 01/03/25 16:00 01/03/25 16:00 01/03/25 16:30 Pulse Rate 71 75 Respiratory Rate Blood Pressure 167/88 H Pulse Oximetry 93 94 Oxygen Delivery Method 01/03/25 16:30 01/03/25 17:00 01/03/25 17:00 Pulse Rate 71 Respiratory Rate Blood Pressure 158/81 H 165/88 H Pulse Oximetry 96 Oxygen Delivery Method 01/03/25 17:30 01/03/25 17:30 01/03/25 18:00 Pulse Rate 73 Respiratory Rate Blood Pressure 165/88 H 160/91 H Pulse Oximetry 95 Oxygen Delivery Method 01/03/25 18:00 01/03/25 18:30 01/03/25 18:30 Pulse Rate 66 72 Respiratory Rate Blood Pressure 171/97 H Pulse Oximetry 96 95 Oxygen Delivery Method 01/03/25 19:00 01/03/25 19:00 01/03/25 19:30 Pulse Rate 69 Respiratory Rate 24 Blood Pressure 178/87 H 172/93 H Pulse Oximetry 94 Oxygen Delivery Method 01/03/25 19:30 01/03/25 19:53 01/03/25 19:53 Pulse Rate 73 77 Respiratory Rate 22 25 H Blood Pressure 165/81 H Pulse Oximetry 95 94 Oxygen Delivery Method Room Air MDM - Neuro Symptoms/Deficit <Sean Regan MD - Last Filed: 01/20/25 08:03> Lab Data 01/03/25 10:01/03/25 10:05 Labs: Lab Results 01/03/25 01/03/25 01/03/25 Range/Units 10: 10: 10: WBC 5.7 (4.5-11.0) X10^3/uL RBC 4.63 (4.0-5.2) X10^6/uL Hgb 15.2 (12.0-16.0) g/dL Hct 44.5 (36-46) % MCV 96.2 (80-100) fL MCH 32.8 (26-34) PG MCHC 34.1 (30-36) % RDW 13.2 (11.6-14.8) % Plt Count 122 L (150-400) X10^3/uL Neut % (Auto) 67.7 (50-75) % Lymph % (Auto) 18.0 L (25-40) % [place] % (Auto) 9.1 (3-14) % Eos % (Auto) 4.8 H (2-4) % Baso % (Auto) 0.4 (0-2) % Neut # (Auto) 3900 (8996-0525) /uL Lymph # (Auto) 1000 L (1794-5753) /uL [place] # (Auto) 500 (0-900) /uL Eos # (Auto) 300 (0-450) /uL Baso # (Auto) 0 (0-100) /uL PT 11.8 (9.4-12.5) SECONDS INR 1.0 (0.9-1.3) APTT 26 (25.1-36.5) SECONDS D-Dimer 1739 H (<500) ng/ml Sodium 140 (137-145) mmol/L Potassium 4.0 (3.4-5.1) mmol/L Chloride 109 H (98-107) mmol/L Carbon Dioxide 25 (22-32) mmol/L BUN 13 (7-17) mg/dL Creatinine 0.66 (0.52-1.04) mg/dL Estimated GFR > 60 (>60) mL/min BUN/Creatinine Ratio 19.7 (6-22) Glucose 119 H (70-99) mg/dL POC Whole Bld Glucose 101 H (70-99) mg/dL Calcium 9.7 (8.4-10.2) mg/dL Total Bilirubin 0.4 (0.2-1.3) mg/dL AST 45 H (14-36) IU/L ALT 22 (<35) IU/L Alkaline Phosphatase 67 (38-126) U/L Total Creatine Kinase 76 (30-135) U/L Troponin I 0.603 H* (0.01-0.034) ng/mL Total Protein 7.0 (6.3-8.2) g/dL Albumin 4.6 (3.5-5.0) g/dL Globulin 2.4 (1.7-4.1) g/dL Albumin/Globulin Ratio 1.9 (1.0-2.8) Urine Color Urine Appearance Urine pH (4.5-8.0) Ur Specific Premont (1.000-1.035) Urine Protein (Negative) Urine Glucose (UA) (Negative) g/dL Urine Ketones (NEGATIVE) Urine Occult Blood (Negative) Urine Nitrate (Negative) Urine Bilirubin (NEGATIVE) Urine Urobilinogen (0.2) E.U./dL Ur Leukocyte Esterase (NEGATIVE) Urine RBC (0-5/HPF) Urine WBC (0-5/HPF) Ur Squamous Epith Cells (0-5/HPF) Ur Transition Epith Cell (0-5/HPF) Ur Renal Epithelial Cell (0-1/HPF) Urine Bacteria (None) Granular Casts (None) Ur Culture Indicated? Vol Urine Centrifuged U Opiates 300ng/mL cut (Negative) Ur Oxycodone Screen (Negative) Urine Methadone Screen (Negative) Ur Barbiturates Screen (Negative) U Tricyclic Antidepress (Negative) Ur Phencyclidine Scrn (Negative) Ur Amphetamines Screen (Negative) U Methamphetamines Scrn (Negative) Ur MDMA Scrn (Ecstasy) (Negative) U Benzodiazepines Scrn (Negative) Urine Cocaine Screen (Negative) U Marijuana (THC) Screen (Negative) Urine Specific Premont (Normal) Ethyl Alcohol < 10 (<10) mg/dL Ur Creatinine (Normal) SARS-CoV-2 (PCR) (Negative) 01/03/25 01/03/25 01/03/25 Range/Units 11:07 11:55 12:07 WBC (4.5-11.0) X10^3/uL RBC (4.0-5.2) X10^6/uL Hgb (12.0-16.0) g/dL Hct (36-46) % MCV (80-100) fL MCH (26-34) PG MCHC (30-36) % RDW (11.6-14.8) % Plt Count (150-400) X10^3/uL Neut % (Auto) (50-75) % Lymph % (Auto) (25-40) % [place] % (Auto) (3-14) % Eos % (Auto) (2-4) % Baso % (Auto) (0-2) % Neut # (Auto) (8207-3246) /uL Lymph # (Auto) (3800-5054) /uL [place] # (Auto) (0-900) /uL Eos # (Auto) (0-450) /uL Baso # (Auto) (0-100) /uL PT (9.4-12.5) SECONDS INR (0.9-1.3) APTT (25.1-36.5) SECONDS D-Dimer (<500) ng/ml Sodium (137-145) mmol/L Potassium (3.4-5.1) mmol/L Chloride (98-107) mmol/L Carbon Dioxide (22-32) mmol/L BUN (7-17) mg/dL Creatinine (0.52-1.04) mg/dL Estimated GFR (>60) mL/min BUN/Creatinine Ratio (6-22) Glucose (70-99) mg/dL POC Whole Bld Glucose 92 83 (70-99) mg/dL Calcium (8.4-10.2) mg/dL Total Bilirubin (0.2-1.3) mg/dL AST (14-36) IU/L ALT (<35) IU/L Alkaline Phosphatase (38-126) U/L Total Creatine Kinase (30-135) U/L Troponin I (0.01-0.034) ng/mL Total Protein (6.3-8.2) g/dL Albumin (3.5-5.0) g/dL Globulin (1.7-4.1) g/dL Albumin/Globulin Ratio (1.0-2.8) Urine Color Urine Appearance Urine pH (4.5-8.0) Ur Specific Prem[place] (1.000-1.035) Urine Protein (Negative) Urine Glucose (UA) (Negative) g/dL Urine Ketones (NEGATIVE) Urine Occult Blood (Negative) Urine Nitrate (Negative) Urine Bilirubin (NEGATIVE) Urine Urobilinogen (0.2) E.U./dL Ur Leukocyte Esterase (NEGATIVE) Urine RBC (0-5/HPF) Urine WBC (0-5/HPF) Ur Squamous Epith Cells (0-5/HPF) Ur Transition Epith Cell (0-5/HPF) Ur Renal Epithelial Cell (0-1/HPF) Urine Bacteria (None) Granular Casts (None) Ur Culture Indicated? Vol Urine Centrifuged U Opiates 300ng/mL cut (Negative) Ur Oxycodone Screen (Negative) Urine Methadone Screen (Negative) Ur Barbiturates Screen (Negative) U Tricyclic Antidepress (Negative) Ur Phencyclidine Scrn (Negative) Ur Amphetamines Screen (Negative) U Methamphetamines Scrn (Negative) Ur MDMA Scrn (Ecstasy) (Negative) U Benzodiazepines Scrn (Negative) Urine Cocaine Screen (Negative) U Marijuana (THC) Screen (Negative) Urine Specific Prem[place] (Normal) Ethyl Alcohol (<10) mg/dL Ur Creatinine (Normal) SARS-CoV-2 (PCR) Negative (Negative) 01/03/25 01/03/25 01/03/25 Range/Units 12:28 15:18 15:31 WBC (4.5-11.0) X10^3/uL RBC (4.0-5.2) X10^6/uL Hgb (12.0-16.0) g/dL Hct (36-46) % MCV (80-100) fL MCH (26-34) PG MCHC (30-36) % RDW (11.6-14.8) % Plt Count (150-400) X10^3/uL Neut % (Auto) (50-75) % Lymph % (Auto) (25-40) % [place] % (Auto) (3-14) % Eos % (Auto) (2-4) % Baso % (Auto) (0-2) % Neut # (Auto) (8634-0930) /uL Lymph # (Auto) (8979-9000) /uL [place] # (Auto) (0-900) /uL Eos # (Auto) (0-450) /uL Baso # (Auto) (0-100) /uL PT (9.4-12.5) SECONDS INR (0.9-1.3) APTT (25.1-36.5) SECONDS D-Dimer (<500) ng/ml Sodium (137-145) mmol/L Potassium (3.4-5.1) mmol/L Chloride (98-107) mmol/L Carbon Dioxide (22-32) mmol/L BUN (7-17) mg/dL Creatinine (0.52-1.04) mg/dL Estimated GFR (>60) mL/min BUN/Creatinine Ratio (6-22) Glucose (70-99) mg/dL POC Whole Bld Glucose (70-99) mg/dL Calcium (8.4-10.2) mg/dL Total Bilirubin (0.2-1.3) mg/dL AST (14-36) IU/L ALT (<35) IU/L Alkaline Phosphatase (38-126) U/L Total Creatine Kinase (30-135) U/L Troponin I 0.621 H* 0.756 H* (0.01-0.034) ng/mL Total Protein (6.3-8.2) g/dL Albumin (3.5-5.0) g/dL Globulin (1.7-4.1) g/dL Albumin/Globulin Ratio (1.0-2.8) Urine Color Yellow Urine Appearance Clear Urine pH 5.5 (4.5-8.0) Ur Specific Prem[place] <=1.005 (1.000-1.035) Urine Protein Negative (Negative) Urine Glucose (UA) Negative (Negative) g/dL Urine Ketones Negative (NEGATIVE) Urine Occult Blood Negative (Negative) Urine Nitrate Negative (Negative) Urine Bilirubin Negative (NEGATIVE) Urine Urobilinogen 0.2 (0.2) E.U./dL Ur Leukocyte Esterase Negative (NEGATIVE) Urine RBC None seen (0-5/HPF) Urine WBC 0-1/hpf (0-5/HPF) Ur Squamous Epith Cells None seen (0-5/HPF) Ur Transition Epith Cell None seen (0-5/HPF) Ur Renal Epithelial Cell None seen (0-1/HPF) Urine Bacteria Occasional (0-1) (None) Granular Casts 0-1/lpf (None) Ur Culture Indicated? Cult not indicated Vol Urine Centrifuged 10ml (spun) U Opiates 300ng/mL cut Negative (Negative) Ur Oxycodone Screen Negative (Negative) Urine Methadone Screen Negative (Negative) Ur Barbiturates Screen Negative (Negative) U Tricyclic Antidepress Positive H (Negative) Ur Phencyclidine Scrn Negative (Negative) Ur Amphetamines Screen Negative (Negative) U Methamphetamines Scrn Negative (Negative) Ur MDMA Scrn (Ecstasy) Negative (Negative) U Benzodiazepines Scrn Negative (Negative) Urine Cocaine Screen Negative (Negative) U Marijuana (THC) Screen Negative (Negative) Urine Specific Prem[place] (Normal) Ethyl Alcohol (<10) mg/dL Ur Creatinine (Normal) SARS-CoV-2 (PCR) (Negative) 01/03/25 Range/Units 15:31 WBC (4.5-11.0) X10^3/uL RBC (4.0-5.2) X10^6/uL Hgb (12.0-16.0) g/dL Hct (36-46) % MCV (80-100) fL MCH (26-34) PG MCHC (30-36) % RDW (11.6-14.8) % Plt Count (150-400) X10^3/uL Neut % (Auto) (50-75) % Lymph % (Auto) (25-40) % [place] % (Auto) (3-14) % Eos % (Auto) (2-4) % Baso % (Auto) (0-2) % Neut # (Auto) (8079-8882) /uL Lymph # (Auto) (7360-3445) /uL [place] # (Auto) (0-900) /uL Eos # (Auto) (0-450) /uL Baso # (Auto) (0-100) /uL PT (9.4-12.5) SECONDS INR (0.9-1.3) APTT (25.1-36.5) SECONDS D-Dimer (<500) ng/ml Sodium (137-145) mmol/L Potassium (3.4-5.1) mmol/L Chloride (98-107) mmol/L Carbon Dioxide (22-32) mmol/L BUN (7-17) mg/dL Creatinine (0.52-1.04) mg/dL Estimated GFR (>60) mL/min BUN/Creatinine Ratio (6-22) Glucose (70-99) mg/dL POC Whole Bld Glucose (70-99) mg/dL Calcium (8.4-10.2) mg/dL Total Bilirubin (0.2-1.3) mg/dL AST (14-36) IU/L ALT (<35) IU/L Alkaline Phosphatase (38-126) U/L Total Creatine Kinase (30-135) U/L Troponin I (0.01-0.034) ng/mL Total Protein (6.3-8.2) g/dL Albumin (3.5-5.0) g/dL Globulin (1.7-4.1) g/dL Albumin/Globulin Ratio (1.0-2.8) Urine Color Urine Appearance Urine pH Normal (4.5-8.0) Ur Specific Prem[place] (1.000-1.035) Urine Protein (Negative) Urine Glucose (UA) (Negative) g/dL Urine Ketones (NEGATIVE) Urine Occult Blood (Negative) Urine Nitrate (Negative) Urine Bilirubin (NEGATIVE) Urine Urobilinogen (0.2) E.U./dL Ur Leukocyte Esterase (NEGATIVE) Urine RBC (0-5/HPF) Urine WBC (0-5/HPF) Ur Squamous Epith Cells (0-5/HPF) Ur Transition Epith Cell (0-5/HPF) Ur Renal Epithelial Cell (0-1/HPF) Urine Bacteria (None) Granular Casts (None) Ur Culture Indicated? Vol Urine Centrifuged U Opiates 300ng/mL cut (Negative) Ur Oxycodone Screen (Negative) Urine Methadone Screen (Negative) Ur Barbiturates Screen (Negative) U Tricyclic Antidepress (Negative) Ur Phencyclidine Scrn (Negative) Ur Amphetamines Screen (Negative) U Methamphetamines Scrn (Negative) Ur MDMA Scrn (Ecstasy) (Negative) U Benzodiazepines Scrn (Negative) Urine Cocaine Screen (Negative) U Marijuana (THC) Screen (Negative) Urine Specific [place] Normal (Normal) Ethyl Alcohol (<10) mg/dL Ur Creatinine Normal (Normal) SARS-CoV-2 (PCR) (Negative) Point of Care Testing Glucose POC 82 <Velia Soriano, DO - Last Filed: 01/03/25 20:50> Lab Data Labs: Lab Results 01/03/25 01/03/25 01/03/25 Range/Units 10:05 10:23 10: WBC 5.7 (4.5-11.0) X10^3/uL RBC 4.63 (4.0-5.2) X10^6/uL Hgb 15.2 (12.0-16.0) g/dL Hct 44.5 (36-46) % MCV 96.2 (80-100) fL MCH 32.8 (26-34) PG MCHC 34.1 (30-36) % RDW 13.2 (11.6-14.8) % Plt Count 122 L (150-400) X10^3/uL Neut % (Auto) 67.7 (50-75) % Lymph % (Auto) 18.0 L (25-40) % [place] % (Auto) 9.1 (3-14) % Eos % (Auto) 4.8 H (2-4) % Baso % (Auto) 0.4 (0-2) % Neut # (Auto) 3900 (1169-5057) /uL Lymph # (Auto) 1000 L (6987-7609) /uL [place] # (Auto) 500 (0-900) /uL Eos # (Auto) 300 (0-450) /uL Baso # (Auto) 0 (0-100) /uL PT 11.8 (9.4-12.5) SECONDS INR 1.0 (0.9-1.3) APTT 26 (25.1-36.5) SECONDS D-Dimer 1739 H (<500) ng/ml Sodium 140 (137-145) mmol/L Potassium 4.0 (3.4-5.1) mmol/L Chloride 109 H (98-107) mmol/L Carbon Dioxide 25 (22-32) mmol/L BUN 13 (7-17) mg/dL Creatinine 0.66 (0.52-1.04) mg/dL Estimated GFR > 60 (>60) mL/min BUN/Creatinine Ratio 19.7 (6-22) Glucose 119 H (70-99) mg/dL POC Whole Bld Glucose 101 H (70-99) mg/dL Calcium 9.7 (8.4-10.2) mg/dL Total Bilirubin 0.4 (0.2-1.3) mg/dL AST 45 H (14-36) IU/L ALT 22 (<35) IU/L Alkaline Phosphatase 67 (38-126) U/L Total Creatine Kinase 76 (30-135) U/L Troponin I 0.603 H* (0.01-0.034) ng/mL Total Protein 7.0 (6.3-8.2) g/dL Albumin 4.6 (3.5-5.0) g/dL Globulin 2.4 (1.7-4.1) g/dL Albumin/Globulin Ratio 1.9 (1.0-2.8) Urine Color Urine Appearance Urine pH (4.5-8.0) Ur Specific Premont (1.000-1.035) Urine Protein (Negative) Urine Glucose (UA) (Negative) g/dL Urine Ketones (NEGATIVE) Urine Occult Blood (Negative) Urine Nitrate (Negative) Urine Bilirubin (NEGATIVE) Urine Urobilinogen (0.2) E.U./dL Ur Leukocyte Esterase (NEGATIVE) Urine RBC (0-5/HPF) Urine WBC (0-5/HPF) Ur Squamous Epith Cells (0-5/HPF) Ur Transition Epith Cell (0-5/HPF) Ur Renal Epithelial Cell (0-1/HPF) Urine Bacteria (None) Granular Casts (None) Ur Culture Indicated? Vol Urine Centrifuged U Opiates 300ng/mL cut (Negative) Ur Oxycodone Screen (Negative) Urine Methadone Screen (Negative) Ur Barbiturates Screen (Negative) U Tricyclic Antidepress (Negative) Ur Phencyclidine Scrn (Negative) Ur Amphetamines Screen (Negative) U Methamphetamines Scrn (Negative) Ur MDMA Scrn (Ecstasy) (Negative) U Benzodiazepines Scrn (Negative) Urine Cocaine Screen (Negative) U Marijuana (THC) Screen (Negative) Urine Specific Premont (Normal) Ethyl Alcohol < 10 (<10) mg/dL Ur Creatinine (Normal) SARS-CoV-2 (PCR) (Negative) 01/03/25 01/03/25 01/03/25 Range/Units 11:07 11:55 12:07 WBC (4.5-11.0) X10^3/uL RBC (4.0-5.2) X10^6/uL Hgb (12.0-16.0) g/dL Hct (36-46) % MCV (80-100) fL MCH (26-34) PG MCHC (30-36) % RDW (11.6-14.8) % Plt Count (150-400) X10^3/uL Neut % (Auto) (50-75) % Lymph % (Auto) (25-40) % [place] % (Auto) (3-14) % Eos % (Auto) (2-4) % Baso % (Auto) (0-2) % Neut # (Auto) (1376-3116) /uL Lymph # (Auto) (7571-3849) /uL [place] # (Auto) (0-900) /uL Eos # (Auto) (0-450) /uL Baso # (Auto) (0-100) /uL PT (9.4-12.5) SECONDS INR (0.9-1.3) APTT (25.1-36.5) SECONDS D-Dimer (<500) ng/ml Sodium (137-145) mmol/L Potassium (3.4-5.1) mmol/L Chloride (98-107) mmol/L Carbon Dioxide (22-32) mmol/L BUN (7-17) mg/dL Creatinine (0.52-1.04) mg/dL Estimated GFR (>60) mL/min BUN/Creatinine Ratio (6-22) Glucose (70-99) mg/dL POC Whole Bld Glucose 92 83 (70-99) mg/dL Calcium (8.4-10.2) mg/dL Total Bilirubin (0.2-1.3) mg/dL AST (14-36) IU/L ALT (<35) IU/L Alkaline Phosphatase (38-126) U/L Total Creatine Kinase (30-135) U/L Troponin I (0.01-0.034) ng/mL Total Protein (6.3-8.2) g/dL Albumin (3.5-5.0) g/dL Globulin (1.7-4.1) g/dL Albumin/Globulin Ratio (1.0-2.8) Urine Color Urine Appearance Urine pH (4.5-8.0) Ur Specific Premont (1.000-1.035) Urine Protein (Negative) Urine Glucose (UA) (Negative) g/dL Urine Ketones (NEGATIVE) Urine Occult Blood (Negative) Urine Nitrate (Negative) Urine Bilirubin (NEGATIVE) Urine Urobilinogen (0.2) E.U./dL Ur Leukocyte Esterase (NEGATIVE) Urine RBC (0-5/HPF) Urine WBC (0-5/HPF) Ur Squamous Epith Cells (0-5/HPF) Ur Transition Epith Cell (0-5/HPF) Ur Renal Epithelial Cell (0-1/HPF) Urine Bacteria (None) Granular Casts (None) Ur Culture Indicated? Vol Urine Centrifuged U Opiates 300ng/mL cut (Negative) Ur Oxycodone Screen (Negative) Urine Methadone Screen (Negative) Ur Barbiturates Screen (Negative) U Tricyclic Antidepress (Negative) Ur Phencyclidine Scrn (Negative) Ur Amphetamines Screen (Negative) U Methamphetamines Scrn (Negative) Ur MDMA Scrn (Ecstasy) (Negative) U Benzodiazepines Scrn (Negative) Urine Cocaine Screen (Negative) U Marijuana (THC) Screen (Negative) Urine Specific Premont (Normal) Ethyl Alcohol (<10) mg/dL Ur Creatinine (Normal) SARS-CoV-2 (PCR) Negative (Negative) 01/03/25 01/03/25 01/03/25 Range/Units 12:28 15:18 15:31 WBC (4.5-11.0) X10^3/uL RBC (4.0-5.2) X10^6/uL Hgb (12.0-16.0) g/dL Hct (36-46) % MCV (80-100) fL MCH (26-34) PG MCHC (30-36) % RDW (11.6-14.8) % Plt Count (150-400) X10^3/uL Neut % (Auto) (50-75) % Lymph % (Auto) (25-40) % [place] % (Auto) (3-14) % Eos % (Auto) (2-4) % Baso % (Auto) (0-2) % Neut # (Auto) (5932-6652) /uL Lymph # (Auto) (2495-5346) /uL Montague # (Auto) (0-900) /uL Eos # (Auto) (0-450) /uL Baso # (Auto) (0-100) /uL PT (9.4-12.5) SECONDS INR (0.9-1.3) APTT (25.1-36.5) SECONDS D-Dimer (<500) ng/ml Sodium (137-145) mmol/L Potassium (3.4-5.1) mmol/L Chloride (98-107) mmol/L Carbon Dioxide (22-32) mmol/L BUN (7-17) mg/dL Creatinine (0.52-1.04) mg/dL Estimated GFR (>60) mL/min BUN/Creatinine Ratio (6-22) Glucose (70-99) mg/dL POC Whole Bld Glucose (70-99) mg/dL Calcium (8.4-10.2) mg/dL Total Bilirubin (0.2-1.3) mg/dL AST (14-36) IU/L ALT (<35) IU/L Alkaline Phosphatase (38-126) U/L Total Creatine Kinase (30-135) U/L Troponin I 0.621 H* 0.756 H* (0.01-0.034) ng/mL Total Protein (6.3-8.2) g/dL Albumin (3.5-5.0) g/dL Globulin (1.7-4.1) g/dL Albumin/Globulin Ratio (1.0-2.8) Urine Color Yellow Urine Appearance Clear Urine pH 5.5 (4.5-8.0) Ur Specific Premont <=1.005 (1.000-1.035) Urine Protein Negative (Negative) Urine Glucose (UA) Negative (Negative) g/dL Urine Ketones Negative (NEGATIVE) Urine Occult Blood Negative (Negative) Urine Nitrate Negative (Negative) Urine Bilirubin Negative (NEGATIVE) Urine Urobilinogen 0.2 (0.2) E.U./dL Ur Leukocyte Esterase Negative (NEGATIVE) Urine RBC None seen (0-5/HPF) Urine WBC 0-1/hpf (0-5/HPF) Ur Squamous Epith Cells None seen (0-5/HPF) Ur Transition Epith Cell None seen (0-5/HPF) Ur Renal Epithelial Cell None seen (0-1/HPF) Urine Bacteria Occasional (0-1) (None) Granular Casts 0-1/lpf (None) Ur Culture Indicated? Cult not indicated Vol Urine Centrifuged 10ml (spun) U Opiates 300ng/mL cut Negative (Negative) Ur Oxycodone Screen Negative (Negative) Urine Methadone Screen Negative (Negative) Ur Barbiturates Screen Negative (Negative) U Tricyclic Antidepress Positive H (Negative) Ur Phencyclidine Scrn Negative (Negative) Ur Amphetamines Screen Negative (Negative) U Methamphetamines Scrn Negative (Negative) Ur MDMA Scrn (Ecstasy) Negative (Negative) U Benzodiazepines Scrn Negative (Negative) Urine Cocaine Screen Negative (Negative) U Marijuana (THC) Screen Negative (Negative) Urine Specific Premont (Normal) Ethyl Alcohol (<10) mg/dL Ur Creatinine (Normal) SARS-CoV-2 (PCR) (Negative) 01/03/25 Range/Units 15:31 WBC (4.5-11.0) X10^3/uL RBC (4.0-5.2) X10^6/uL Hgb (12.0-16.0) g/dL Hct (36-46) % MCV (80-100) fL MCH (26-34) PG MCHC (30-36) % RDW (11.6-14.8) % Plt Count (150-400) X10^3/uL Neut % (Auto) (50-75) % Lymph % (Auto) (25-40) % [place] % (Auto) (3-14) % Eos % (Auto) (2-4) % Baso % (Auto) (0-2) % Neut # (Auto) (0575-1170) /uL Lymph # (Auto) (4532-1484) /uL [place]ague # (Auto) (0-900) /uL Eos # (Auto) (0-450) /uL Baso # (Auto) (0-100) /uL PT (9.4-12.5) SECONDS INR (0.9-1.3) APTT (25.1-36.5) SECONDS D-Dimer (<500) ng/ml Sodium (137-145) mmol/L Potassium (3.4-5.1) mmol/L Chloride (98-107) mmol/L Carbon Dioxide (22-32) mmol/L BUN (7-17) mg/dL Creatinine (0.52-1.04) mg/dL Estimated GFR (>60) mL/min BUN/Creatinine Ratio (6-22) Glucose (70-99) mg/dL POC Whole Bld Glucose (70-99) mg/dL Calcium (8.4-10.2) mg/dL Total Bilirubin (0.2-1.3) mg/dL AST (14-36) IU/L ALT (<35) IU/L Alkaline Phosphatase (38-126) U/L Total Creatine Kinase (30-135) U/L Troponin I (0.01-0.034) ng/mL Total Protein (6.3-8.2) g/dL Albumin (3.5-5.0) g/dL Globulin (1.7-4.1) g/dL Albumin/Globulin Ratio (1.0-2.8) Urine Color Urine Appearance Urine pH Normal (4.5-8.0) Ur Specific Premont (1.000-1.035) Urine Protein (Negative) Urine Glucose (UA) (Negative) g/dL Urine Ketones (NEGATIVE) Urine Occult Blood (Negative) Urine Nitrate (Negative) Urine Bilirubin (NEGATIVE) Urine Urobilinogen (0.2) E.U./dL Ur Leukocyte Esterase (NEGATIVE) Urine RBC (0-5/HPF) Urine WBC (0-5/HPF) Ur Squamous Epith Cells (0-5/HPF) Ur Transition Epith Cell (0-5/HPF) Ur Renal Epithelial Cell (0-1/HPF) Urine Bacteria (None) Granular Casts (None) Ur Culture Indicated? Vol Urine Centrifuged U Opiates 300ng/mL cut (Negative) Ur Oxycodone Screen (Negative) Urine Methadone Screen (Negative) Ur Barbiturates Screen (Negative) U Tricyclic Antidepress (Negative) Ur Phencyclidine Scrn (Negative) Ur Amphetamines Screen (Negative) U Methamphetamines Scrn (Negative) Ur MDMA Scrn (Ecstasy) (Negative) U Benzodiazepines Scrn (Negative) Urine Cocaine Screen (Negative) U Marijuana (THC) Screen (Negative) Urine Specific Prem[place] Normal (Normal) Ethyl Alcohol (<10) mg/dL Ur Creatinine Normal (Normal) SARS-CoV-2 (PCR) (Negative) Point of Care Testing Glucose POC [address] scan - head: Radiologist's Impression: PROCEDURE: CT STROKE INDICATIONS: acute stroke TECHNIQUE: Noncontrast 4.5 mm thick angled axial sections acquired from the foramen magnum to the vertex, with coronal reformats. For radiation dose reduction, the following was used: automated exposure control, adjustment of mA and/or kV according to patient size. COMPARISON: None. FINDINGS: Image quality: Diagnostic. CSF spaces: Basal cisterns are patent. No extra-axial fluid collections. The ventricles are symmetric in size and shape. Brain: No acute intracranial hemorrhage or mass effect. There is cerebral volume loss, with resultant ventricular and sulcal prominence. There are periventricular and deep white matter chronic small vessel ischemic changes. There is intracranial internal carotid artery atherosclerosis. Skull and face: Calvarium and visualized facial bones appear intact, without suspicious lesions. Sinuses: Visualized sinuses and mastoids are clear. IMPRESSION: No acute intracranial pathology. Findings were discussed with the referring provider, Dr. Regan, by telephone on 01/03/2025 at 10:45 AM. This study fulfills neurological imaging criteria for inclusion or exclusion of acute stroke therapies based on available published neurological guidelines. Approved by: Enrique Enrique M.D. on 01/03/2025 at 10:46 CTA - brain/neck: Radiologist's Impression: PROCEDURE: CT STROKE INDICATIONS: acute stroke TECHNIQUE: Noncontrast 4.5 mm thick angled axial sections acquired from the foramen magnum to the vertex, with coronal reformats. For radiation dose reduction, the following was used: automated exposure control, adjustment of mA and/or kV according to patient size. COMPARISON: None. FINDINGS: Image quality: Diagnostic. CSF spaces: Basal cisterns are patent. No extra-axial fluid collections. The ventricles are symmetric in size and shape. Brain: No acute intracranial hemorrhage or mass effect. There is cerebral volume loss, with resultant ventricular and sulcal prominence. There are periventricular and deep white matter chronic small vessel ischemic changes. There is intracranial internal carotid artery atherosclerosis. Skull and face: Calvarium and visualized facial bones appear intact, without suspicious lesions. Sinuses: Visualized sinuses and mastoids are clear. IMPRESSION: No acute intracranial pathology. Findings were discussed with the referring provider, Dr. Regan, by telephone on 01/03/2025 at 10:45 AM. This study fulfills neurological imaging criteria for inclusion or exclusion of acute stroke therapies based on available published neurological guidelines. Approved by: Enrique Enrique M.D. on 01/03/2025 at 10:46 MRI: Radiologist's Impression: PROCEDURE: MR HEAD/BRAIN WO/W CON INDICATIONS: stroke and suspicion of metastatic disease TECHNIQUE: Noncontrast axial T1 spin echo, axial T2 fast spin echo, sagittal and axial FLAIR, coronal T2 fast spin echo, axial gradient echo, axial diffusion and ADC through the brain. After the administration of contrast, axial and coronal and sagittal T1 spin echo with fat saturation through the brain. COMPARISON: [facility], CT, CT ANGIO HEAD AND NECK, 01/03/2025, 10:37. [facility], CT, CT STROKE, 01/03/2025, 10:37. FINDINGS: Image quality: Images are degraded by patient motion on multiple pulse sequences. Some diagnostic information is obtained. CSF spaces: Basal cisterns are patent. No extra-axial fluid collections. Ventricles are symmetric in size and shape. Brain: Patchy diffusion restriction in the left MCA territory including the left insula, posterior left frontal lobe, and caudate head. No hemorrhagic conversion. No significant mass effect or midline shift. Scattered tiny cortical foci of hyperintense signal are seen on diffusion-weighted imaging in the bilateral cerebral hemispheres, without convincing low ADC values. Scattered foci of T2/FLAIR hyperintense signal in the subcortical and periventricular white matter. No definite enhancing intracranial mass. Generalized cerebral and cerebellar parenchymal volume loss. Skull and face: Calvarial marrow is normal in signal. Orbits appear normal. Sinuses: Sinuses and mastoids appear clear. IMPRESSION: 1. Multifocal patchy diffusion restriction in the left MCA territory, compatible with recent infarct. No significant mass effect or hemorrhagic conversion. 2. Punctate foci of cortical diffusion restriction versus T2 shine through artifact in the bilateral cerebral hemispheres, possibly related to embolic infarcts versus tiny metastases. No definite associated postcontrast enhancement is seen although exam is degraded by significant patient motion. 3. Chronic microvascular ischemic changes and generalized parenchymal volume loss. Approved by: Enrique Enrique M.D. on 01/03/2025 at 16:05 CT scan - chest: Radiologist's Impression: PROCEDURE: CT ANGIO CHEST PE PROTOCOL INDICATIONS: positive troponin and high dimer TECHNIQUE: After the administration of intravenous contrast, 2 mm thick sections acquired from the pulmonary apices to the posterior costophrenic angles. 3-dimensional maximum intensity projection (MIP) coronal and sagittal reformats were then acquired through the thorax. For radiation dose reduction, the following was used: automated exposure control, adjustment of mA and/or kV according to patient size. COMPARISON: None. FINDINGS: Image quality: Diagnostic. Some images are limited by beam hardening, patient motion or other artifacts. Markedly abnormal appearance of the chest with left lower lobe lateral basal rounded mass-like area of consolidation possible neoplasm, metastasis. Less likely to represent rounded pneumonia, rounded atelectasis. Follow-up is needed. In total this measures up to approximately 3.4 cm AP x 3.0 cm cc by 2.6 cm transverse maximal dimensions. Markedly abnormal appearance of the lungs with moderate COPD/emphysematous changes with centrilobular and paraseptal emphysema. Cavitation, abnormal pleural thickening/scarring versus recurrent mass in an area of surgical clips left apex medially in an area spanning up to approximately 3.5 cm. 1 cm nodule left upper lobe (axial series 5, image 44. Numerous areas of abnormal prominent interstitial markings, fibrotic changes predominantly in the lower lobes left greater than right. Abnormal peribronchial thickening diffusely predominantly in the lower lobes. Numerous abnormally enlarged mediastinal, prevascular, aortic or pulmonary, anterior tracheal, bilateral paratracheal, subcarinal and bilateral hilar lymph nodes the largest conglomeration subcarinal measuring up to 2.8 cm short axis more than expected for infectious/inflammatory nodes and pathologically enlarged, neoplastic, metastatic nodes, lymphoma or other process suspected. Follow-up is needed. She CIS mild pericardial effusion measures up to 1.5 cm anteriorly-inferiorly. Mild cardiomegaly with four-chamber enlargement but predominantly left atrial, left ventricular enlargement on a background of left ventricular hypertrophy measuring up to 2 cm thickness. Enlarged pulmonary artery outflow tract, right and left main pulmonary arteries measuring up to 3.4, 2.7, 2.7 cm diameter, pulmonary arterial hypertension. No definitive filling defect in the main, secondary or proximal tertiary pulmonary arteries. Evaluation of the distal pulmonary arteries is limited. Trace left pleural effusion. No pneumothorax. Mild dextroscoliosis of the thoracic spine some of which may be artifact from positioning. Degenerative changes of the thoracic spine without CT evidence of fracture or subluxation. Severe degenerative changes of the bilateral glenohumeral joints right greater than left. Images in the upper abdomen demonstrate mild nonspecific wall thickening distal esophagus into the stomach partially imaged commonly artifact from partial nondistention although gastritis or other process could be considered. Thyroid: 1.5 cm left thyroid nodule and moderately enlarged thyroid gland. Thyroid ultrasound could be considered. Axillae: No enlarged lymph nodes. Thoracic Vessels: Mildly dilated ascending aorta 4.0 cm. IMPRESSION: Abnormal appearance of the chest as discussed above with left lower lobe suspected nodule/mass , abnormally enlarged mediastinal lymph nodes, prominent interstitial markings, peribronchial thickening, right upper lobe cavitation and pleural thickening possible recurrent mass. Left upper lobe lung nodule. Mild pericardial effusion, cardiomegaly, 4.0 cm aortic aneurysm. Other findings as above. Follow-up is needed. No definitive filling defect to suggest pulmonary embolism. Limited exam. Dictated by: Harjeet Montiel M.D. on 01/03/2025 at 16:11 MR brain: Radiologist's Impression: PROCEDURE: CT STROKE INDICATIONS: acute stroke TECHNIQUE: Noncontrast 4.5 mm thick angled axial sections acquired from the foramen magnum to the vertex, with coronal reformats. For radiation dose reduction, the following was used: automated exposure control, adjustment of mA and/or kV according to patient size. COMPARISON: None. FINDINGS: Image quality: Diagnostic. CSF spaces: Basal cisterns are patent. No extra-axial fluid collections. The ventricles are symmetric in size and shape. Brain: No acute intracranial hemorrhage or mass effect. There is cerebral volume loss, with resultant ventricular and sulcal prominence. There are periventricular and deep white matter chronic small vessel ischemic changes. There is intracranial internal carotid artery atherosclerosis. Skull and face: Calvarium and visualized facial bones appear intact, without suspicious lesions. Sinuses: Visualized sinuses and mastoids are clear. IMPRESSION: No acute intracranial pathology. Findings were discussed with the referring provider, Dr. Regan, by telephone on 01/03/2025 at 10:45 AM. This study fulfills neurological imaging criteria for inclusion or exclusion of acute stroke therapies based on available published neurological guidelines. Approved by: Enrique Enrique M.D. on 01/03/2025 at 10:46 ECG Data Attestation: I personally reviewed and interpreted this ECG as follows: Interpretation: Low voltage rate 77 CA interval 172 QRS [address] changes no prior MDM Narrative Medical decision making narrative: 1530 Dr. Soriano [facility] CC: Right-sided weakness Complicating co-morbidities: Smoker Data collected from: Family Medical records reviewed: [ ] Differential considered: CVA TIA septic emboli Toxicology intracranial hemorrhage [place] Exam documented above, pertinent findings include: At time of my take over on exam patient is still confused not actually speaking or verbalizing able to move right side follow some commands. She does some red spots under her fingers mostly on the right side and on her right toe as well possible [place] lesions Lab Test results independently reviewed as above. Pertinent findings: Rising troponin 0.603-->0.621-->0.756 Dimer 1739 CBC no leukocytosis no anemia CMP no electrolyte abnormality creatinine within normal limits Independently reviewed EKG as above Low voltage no ischemia Imaging studies independently reviewed: Head CT no intracranial hemorrhage CTA no large vessel occlusion Brain MR multifocal patchy diffusion left MCA territory. Punctate foci of cortical diffusion restriction versus T2 shine through artifact. Possibly related to embolic infarcts versus tiny metastasis CT angio no pulmonary emboli, left lower lobe mass Consultations: Neurology Dr. Lynn, updated patient's symptoms test results kindly accepts patient no treatment at this time not indication for thrombectomy or Treatments: Versed Valium droperidol all given for sedation for imaging Re-evaluations: Patient able to move right side of body at by evaluation not able to speak. Medications seems to have caught up with her she is now calm Discussion: Patient is 69-year-old female presents today with right-sided weakness. She is found to have left MCA CVA. However there is also concern for possible emboli. She has elevated troponins no evidence of STEMI or pulmonary embolism. She does not have any leukocytosis or fever do not suspect septic emboli however she does have where lesions on her fingers possible [place] lesions in her right toe is also has lesions. Family at bedside both his son daughter and sister. Unclear who has [id number]. Patient being transferred to [facility] for further workup and evaluation. Critical Care Time <Velia Soriano, - Last Filed: 01/03/25 20:50> Critical Care Time Critical Care Time: Yes Total Critical Care Time: 45 Attestation: The high probability of a clinically significant, sudden or life threatening deterioration of the neurovascular system(s) required my full and direct attention, intervention and personal management. The aggregate critical care time was [45] minutes. This time is in addition to time spent performing reported procedures but includes the following: [x] Data Review and interpretation [x] Patient assessment and monitoring of vital signs [x] Documentation [x] Medication orders and management Discharge Plan Departure Patient Disposition: [facility] Clinical Impression: CVA (cerebral vascular accident), Acute non-ST elevation myocardial infarction (NSTEMI) Prescriptions: No Action sulfasalazine 500 mg tablet 1 gram PO DAILY hydroxychloroquine 200 mg tablet 200 mg PO DAILY pregabalin [Lyrica] 75 mg capsule 75 mg PO BID cyclobenzaprine 10 mg tablet 10 mg PO BID ibuprofen 600 mg tablet 600 mg PO TID sulfasalazine 500 mg tablet,delayed release (DR/EC) 1,000 mg PO BID venlafaxine 225 mg tablet extended release 24hr 225 mg PO DAILY lisinopril 10 mg tablet 10 mg PO DAILY trazodone 100 mg tablet 100 - 200 mg PO ONCE PM tocilizumab [Actemra ACTPen] SUBCUT
[2025-01-03 10:38] LABS: Add Manual Diff / Slide Review NO; Hematocrit 44.5 % (36-46); Hemoglobin 15.2 g/dL (12.0-16.0); Lymphocytes Absolute Auto 1000 /uL (1100-4500); Mean Corpuscular HGB Conc 34.1 % (30-36); Mean Corpuscular Hemoglobin 32.8 PG (26-34); Mean Corpuscular Volume 96.2 fL (80-100); Platelet Count 122 X10^3/uL (150-400)
--- NOTE | 2025-01-03 10:40 | PC.NURSE ---
Patient daughter was called by ED director. ED director reports that daughter states that she was texting with the patient and last text was 9:32am. Daughter states that patient had had 2 weeks of headaches and had scheduled appointment with provider next week. Primary nurse informed and ED provider informed.
--- NOTE | 2025-01-03 10:45 | ED_ITS ---
HPI - Neuro Symptoms/Deficit General Chief Complaint: Altered Mental Status Stated Complaint: AMS Time Seen by Provider: 01/03/25 10:21 Source: EMS Mode of arrival: EMS History of Present Illness HPI Narrative: This is a 61-year-old female with a known past medical history brought in by medics with altered mental status and neurologic deficits. Her last known well as unknown per medics ?sometime yesterday?. The patient was found outside of her apartment complex in the area were smokers conjugate. It is unknown how long she had been there however I strongly doubt that she spent the night out there. The patient is unable to speak. At this point I do not have any available past medical history medications allergies etc.. Additional history was obtained through her daughter. Patient has been having headaches recently. Has a history of lung cancer and radiation treatment she is currently a smoker also history of rheumatoid arthritis and fibromyalgia and has had ?dots? show up on fingers and toes and currently has a right toe with color changes like bruising. She is on multiple medications but not anticoagulated no history of atrial fibrillation seizure or diabetes. Related Data Home Medications ?Medication ?Instructions ?Recorded ?Confirmed cyclobenzaprine 10 mg tablet 10 mg PO BID 12/13/17 hydroxychloroquine 200 mg tablet 200 mg PO DAILY 12/1312/07/22 ibuprofen 600 mg tablet 600 mg PO TID 12/13/1712/07 pregabalin 75 mg capsule (Lyrica) 75 mg PO BID 8 12/07/22 sulfasalazine 500 mg tablet 1 gram PO DAILY 12/13/17 0 12/07/22 lisinopril 10 mg tablet 10 mg PO DAILY 12/07/2211/25 sulfasalazine 500 mg 1,000 mg PO BID 12/07/22 tablet,delayed release tocilizumab [Actemra ACTPen] SUBCUT 12/07/22 12/07/22 trazodone 100 mg tablet 100 - 200 mg PO ONCE PM inso mnia 12/07/22 12/07/22 venlafaxine 225 mg tablet,extended 225 mg PO DAILY dep ressive disorder 12/07/22 12/07/22 release 24 hr Allergies Allergy/AdvReac Type Severity Reaction Status Date / Time No Known Drug Allergies Allergy Verified 01/06/25 11:02 Patient History Medical History 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 Surgical History S/P lobectomy of lung Exam Initial Vital Signs Initial Vital Signs: Vital Signs Temperature 98.6 F 01/03/25 10:35 Pulse Rate 85 01/03/25 10:35 Respiratory Rate 27 H 01/03/25 10:35 Blood Pressure 146/88 H 01/03/25 10:35 Pulse Oximetry 95 01/03/25 10:35 Oxygen Delivery Method Room Air 01/03/25 10:35 Course Orders Ordered: Discontinued Medications Aspirin (Aspirin Ec 325 Mg Tablet) 325 mg PO NOW ONE Stop: 01/03/25 11:54 Last Admin: 01/03/25 12:38 Dose: 325 mg Documented By: Diazepam (Diazepam 10 Mg/2 Ml Syringe) 2 mg IV NOW ONE Stop: 01/03/25 12:26 Last Admin: 01/03/25 13:22 Dose: 2 mg Documented By: BRITTANI Diazepam (Diazepam 10 Mg/2 Ml Syringe) 2 mg IV NOW ONE Stop: 01/03/25 14:01 Last Admin: 01/03/25 14:06 Dose: 2 mg Documented By: Droperidol (Droperidol 2.5 Mg/Ml Vial) 0.625 mg IV NOW ONE Stop: 01/03/25 14:27 Last Admin: 01/03/25 14:31 Dose: 0.625 mg Documented By: Sodium Chloride (Normal Saline 0.9%) 1,000 mls @ 1,000 mls/hr IV BOLUS ONE Stop: 01/03/25 13:24 Last Infusion: 01/03/25 14:05 Dose: Infused Documented By: Admin: 01/03/25 12:39 Dose: 1,000 mls/hr Documented By: Midazolam HCl (Midazolam 2 Mg/2 Ml Vial) 2 mg IV NOW ONE Stop: 01/03/25 14:27 Last Admin: 01/03/25 14:31 Dose: 2 mg Documented By: Midazolam HCl (Midazolam 2 Mg/2 Ml Vial) 4 mg IV NOW ONE Stop: 01/03/25 15:12 Last Admin: 01/03/25 18:31 Dose: 4 mg Documented By: MS Vital Signs Vital signs: Vital Signs - 8 hr 01/03/25 10:35 Temperature 98.6 F Pulse Rate 85 Respiratory Rate 27 H Blood Pressure 146/88 H Pulse Oximetry 95 Oxygen Delivery Method Room Air MDM - Neuro Symptoms/Deficit Lab Data 01/03/25 10:25 01/03/25 10:05 Labs: Lab Results 01/03/25 01/03/25 01/03/25 Range/Units 10: 10: 10: WBC 5.7 (4.5-11.0) X10^3/uL RBC 4.63 (4.0-5.2) X10^6/uL Hgb 15.2 (12.0-16.0) g/dL Hct 44.5 (36-46) % MCV 96.2 (80-100) fL MCH 32.8 (26-34) PG MCHC 34.1 (30-36) % RDW 13.2 (11.6-14.8) % Plt Count 122 L (150-400) X10^3/uL Neut % (Auto) 67.7 (50-75) % Lymph % (Auto) 18.0 L (25-40) % [place] % (Auto) 9.1 (3-14) % Eos % (Auto) 4.8 H (2-4) % Baso % (Auto) 0.4 (0-2) % Neut # (Auto) 3900 (8324-4968) /uL Lymph # (Auto) 1000 L (2973-9912) /uL [place] # (Auto) 500 (0-900) /uL Eos # (Auto) 300 (0-450) /uL Baso # (Auto) 0 (0-100) /uL PT 11.8 (9.4-12.5) SECONDS INR 1.0 (0.9-1.3) APTT 26 (25.1-36.5) SECONDS D-Dimer 1739 H (<500) ng/ml Sodium 140 (137-145) mmol/L Potassium 4.0 (3.4-5.1) mmol/L Chloride 109 H (98-107) mmol/L Carbon Dioxide 25 (22-32) mmol/L BUN 13 (7-17) mg/dL Creatinine 0.66 (0.52-1.04) mg/dL Estimated GFR > 60 (>60) mL/min BUN/Creatinine Ratio 19.7 (6-22) Glucose 119 H (70-99) mg/dL POC Whole Bld Glucose 101 H (70-99) mg/dL Calcium 9.7 (8.4-10.2) mg/dL Total Bilirubin 0.4 (0.2-1.3) mg/dL AST 45 H (14-36) IU/L ALT 22 (<35) IU/L Alkaline Phosphatase 67 (38-126) U/L Total Creatine Kinase 76 (30-135) U/L Troponin I 0.603 H* (0.01-0.034) ng/mL Total Protein 7.0 (6.3-8.2) g/dL Albumin 4.6 (3.5-5.0) g/dL Globulin 2.4 (1.7-4.1) g/dL Albumin/Globulin Ratio 1.9 (1.0-2.8) Urine Color Urine Appearance Urine pH (4.5-8.0) Ur Specific [place] (1.000-1.035) Urine Protein (Negative) Urine Glucose (UA) (Negative) g/dL Urine Ketones (NEGATIVE) Urine Occult Blood (Negative) Urine Nitrate (Negative) Urine Bilirubin (NEGATIVE) Urine Urobilinogen (0.2) E.U./dL Ur Leukocyte Esterase (NEGATIVE) Urine RBC (0-5/HPF) Urine WBC (0-5/HPF) Ur Squamous Epith Cells (0-5/HPF) Ur Transition Epith Cell (0-5/HPF) Ur Renal Epithelial Cell (0-1/HPF) Urine Bacteria (None) Granular Casts (None) Ur Culture Indicated? Vol Urine Centrifuged U Opiates 300ng/mL cut (Negative) Ur Oxycodone Screen (Negative) Urine Methadone Screen (Negative) Ur Barbiturates Screen (Negative) U Tricyclic Antidepress (Negative) Ur Phencyclidine Scrn (Negative) Ur Amphetamines Screen (Negative) U Methamphetamines Scrn (Negative) Ur MDMA Scrn (Ecstasy) (Negative) U Benzodiazepines Scrn (Negative) Urine Cocaine Screen (Negative) U Marijuana (THC) Screen (Negative) Urine Specific [place] (Normal) Ethyl Alcohol < 10 (<10) mg/dL Ur Creatinine (Normal) SARS-CoV-2 (PCR) (Negative) 01/03/25 01/03/25 01/03/25 Range/Units 11:07 11:55 12:07 WBC (4.5-11.0) X10^3/uL RBC (4.0-5.2) X10^6/uL Hgb (12.0-16.0) g/dL Hct (36-46) % MCV (80-100) fL MCH (26-34) PG MCHC (30-36) % RDW (11.6-14.8) % Plt Count (150-400) X10^3/uL Neut % (Auto) (50-75) % Lymph % (Auto) (25-40) % [place] % (Auto) (3-14) % Eos % (Auto) (2-4) % Baso % (Auto) (0-2) % Neut # (Auto) (0743-3813) /uL Lymph # (Auto) (0448-0308) /uL [place] # (Auto) (0-900) /uL Eos # (Auto) (0-450) /uL Baso # (Auto) (0-100) /uL PT (9.4-12.5) SECONDS INR (0.9-1.3) APTT (25.1-36.5) SECONDS D-Dimer (<500) ng/ml Sodium (137-145) mmol/L Potassium (3.4-5.1) mmol/L Chloride (98-107) mmol/L Carbon Dioxide (22-32) mmol/L BUN (7-17) mg/dL Creatinine (0.52-1.04) mg/dL Estimated GFR (>60) mL/min BUN/Creatinine Ratio (6-22) Glucose (70-99) mg/dL POC Whole Bld Glucose 92 83 (70-99) mg/dL Calcium (8.4-10.2) mg/dL Total Bilirubin (0.2-1.3) mg/dL AST (14-36) IU/L ALT (<35) IU/L Alkaline Phosphatase (38-126) U/L Total Creatine Kinase (30-135) U/L Troponin I (0.01-0.034) ng/mL Total Protein (6.3-8.2) g/dL Albumin (3.5-5.0) g/dL Globulin (1.7-4.1) g/dL Albumin/Globulin Ratio (1.0-2.8) Urine Color Urine Appearance Urine pH (4.5-8.0) Ur Specific [place] (1.000-1.035) Urine Protein (Negative) Urine Glucose (UA) (Negative) g/dL Urine Ketones (NEGATIVE) Urine Occult Blood (Negative) Urine Nitrate (Negative) Urine Bilirubin (NEGATIVE) Urine Urobilinogen (0.2) E.U./dL Ur Leukocyte Esterase (NEGATIVE) Urine RBC (0-5/HPF) Urine WBC (0-5/HPF) Ur Squamous Epith Cells (0-5/HPF) Ur Transition Epith Cell (0-5/HPF) Ur Renal Epithelial Cell (0-1/HPF) Urine Bacteria (None) Granular Casts (None) Ur Culture Indicated? Vol Urine Centrifuged U Opiates 300ng/mL cut (Negative) Ur Oxycodone Screen (Negative) Urine Methadone Screen (Negative) Ur Barbiturates Screen (Negative) U Tricyclic Antidepress (Negative) Ur Phencyclidine Scrn (Negative) Ur Amphetamines Screen (Negative) U Methamphetamines Scrn (Negative) Ur MDMA Scrn (Ecstasy) (Negative) U Benzodiazepines Scrn (Negative) Urine Cocaine Screen (Negative) U Marijuana (THC) Screen (Negative) Urine Specific [place] (Normal) Ethyl Alcohol (<10) mg/dL Ur Creatinine (Normal) SARS-CoV-2 (PCR) Negative (Negative) 01/03/25 01/03/25 01/03/25 Range/Units 12:28 15:18 15:31 WBC (4.5-11.0) X10^3/uL RBC (4.0-5.2) X10^6/uL Hgb (12.0-16.0) g/dL Hct (36-46) % MCV (80-100) fL MCH (26-34) PG MCHC (30-36) % RDW (11.6-14.8) % Plt Count (150-400) X10^3/uL Neut % (Auto) (50-75) % Lymph % (Auto) (25-40) % [place] % (Auto) (3-14) % Eos % (Auto) (2-4) % Baso % (Auto) (0-2) % Neut # (Auto) (7926-3537) /uL Lymph # (Auto) (7569-2922) /uL [place] # (Auto) (0-900) /uL Eos # (Auto) (0-450) /uL Baso # (Auto) (0-100) /uL PT (9.4-12.5) SECONDS INR (0.9-1.3) APTT (25.1-36.5) SECONDS D-Dimer (<500) ng/ml Sodium (137-145) mmol/L Potassium (3.4-5.1) mmol/L Chloride (98-107) mmol/L Carbon Dioxide (22-32) mmol/L BUN (7-17) mg/dL Creatinine (0.52-1.04) mg/dL Estimated GFR (>60) mL/min BUN/Creatinine Ratio (6-22) Glucose (70-99) mg/dL POC Whole Bld Glucose (70-99) mg/dL Calcium (8.4-10.2) mg/dL Total Bilirubin (0.2-1.3) mg/dL AST (14-36) IU/L ALT (<35) IU/L Alkaline Phosphatase (38-126) U/L Total Creatine Kinase (30-135) U/L Troponin I 0.621 H* 0.756 H* (0.01-0.034) ng/mL Total Protein (6.3-8.2) g/dL Albumin (3.5-5.0) g/dL Globulin (1.7-4.1) g/dL Albumin/Globulin Ratio (1.0-2.8) Urine Color Yellow Urine Appearance Clear Urine pH 5.5 (4.5-8.0) Ur Specific [place] <=1.005 (1.000-1.035) Urine Protein Negative (Negative) Urine Glucose (UA) Negative (Negative) g/dL Urine Ketones Negative (NEGATIVE) Urine Occult Blood Negative (Negative) Urine Nitrate Negative (Negative) Urine Bilirubin Negative (NEGATIVE) Urine Urobilinogen 0.2 (0.2) E.U./dL Ur Leukocyte Esterase Negative (NEGATIVE) Urine RBC None seen (0-5/HPF) Urine WBC 0-1/hpf (0-5/HPF) Ur Squamous Epith Cells None seen (0-5/HPF) Ur Transition Epith Cell None seen (0-5/HPF) Ur Renal Epithelial Cell None seen (0-1/HPF) Urine Bacteria Occasional (0-1) (None) Granular Casts 0-1/lpf (None) Ur Culture Indicated? Cult not indicated Vol Urine Centrifuged 10ml (spun) U Opiates 300ng/mL cut Negative (Negative) Ur Oxycodone Screen Negative (Negative) Urine Methadone Screen Negative (Negative) Ur Barbiturates Screen Negative (Negative) U Tricyclic Antidepress Positive H (Negative) Ur Phencyclidine Scrn Negative (Negative) Ur Amphetamines Screen Negative (Negative) U Methamphetamines Scrn Negative (Negative) Ur MDMA Scrn (Ecstasy) Negative (Negative) U Benzodiazepines Scrn Negative (Negative) Urine Cocaine Screen Negative (Negative) U Marijuana (THC) Screen Negative (Negative) Urine Specific [place] (Normal) Ethyl Alcohol (<10) mg/dL Ur Creatinine (Normal) SARS-CoV-2 (PCR) (Negative) 01/03/25 Range/Units 15:31 WBC (4.5-11.0) X10^3/uL RBC (4.0-5.2) X10^6/uL Hgb (12.0-16.0) g/dL Hct (36-46) % MCV (80-100) fL MCH (26-34) PG MCHC (30-36) % RDW (11.6-14.8) % Plt Count (150-400) X10^3/uL Neut % (Auto) (50-75) % Lymph % (Auto) (25-40) % [place] % (Auto) (3-14) % Eos % (Auto) (2-4) % Baso % (Auto) (0-2) % Neut # (Auto) (7610-5220) /uL Lymph # (Auto) (9845-4365) /uL [place] # (Auto) (0-900) /uL Eos # (Auto) (0-450) /uL Baso # (Auto) (0-100) /uL PT (9.4-12.5) SECONDS INR (0.9-1.3) APTT (25.1-36.5) SECONDS D-Dimer (<500) ng/ml Sodium (137-145) mmol/L Potassium (3.4-5.1) mmol/L Chloride (98-107) mmol/L Carbon Dioxide (22-32) mmol/L BUN (7-17) mg/dL Creatinine (0.52-1.04) mg/dL Estimated GFR (>60) mL/min BUN/Creatinine Ratio (6-22) Glucose (70-99) mg/dL POC Whole Bld Glucose (70-99) mg/dL Calcium (8.4-10.2) mg/dL Total Bilirubin (0.2-1.3) mg/dL AST (14-36) IU/L ALT (<35) IU/L Alkaline Phosphatase (38-126) U/L Total Creatine Kinase (30-135) U/L Troponin I (0.01-0.034) ng/mL Total Protein (6.3-8.2) g/dL Albumin (3.5-5.0) g/dL Globulin (1.7-4.1) g/dL Albumin/Globulin Ratio (1.0-2.8) Urine Color Urine Appearance Urine pH Normal (4.5-8.0) Ur Specific [place] (1.000-1.035) Urine Protein (Negative) Urine Glucose (UA) (Negative) g/dL Urine Ketones (NEGATIVE) Urine Occult Blood (Negative) Urine Nitrate (Negative) Urine Bilirubin (NEGATIVE) Urine Urobilinogen (0.2) E.U./dL Ur Leukocyte Esterase (NEGATIVE) Urine RBC (0-5/HPF) Urine WBC (0-5/HPF) Ur Squamous Epith Cells (0-5/HPF) Ur Transition Epith Cell (0-5/HPF) Ur Renal Epithelial Cell (0-1/HPF) Urine Bacteria (None) Granular Casts (None) Ur Culture Indicated? Vol Urine Centrifuged U Opiates 300ng/mL cut (Negative) Ur Oxycodone Screen (Negative) Urine Methadone Screen (Negative) Ur Barbiturates Screen (Negative) U Tricyclic Antidepress (Negative) Ur Phencyclidine Scrn (Negative) Ur Amphetamines Screen (Negative) U Methamphetamines Scrn (Negative) Ur MDMA Scrn (Ecstasy) (Negative) U Benzodiazepines Scrn (Negative) Urine Cocaine Screen (Negative) U Marijuana (THC) Screen (Negative) Urine Specific [place] Normal (Normal) Ethyl Alcohol (<10) mg/dL Ur Creatinine Normal (Normal) SARS-CoV-2 (PCR) (Negative) Point of Care Testing Glucose POC [address] scan - head: My Impression: Independently reviewed, no acute finding Radiologist's Impression: CT head no acute finding per Radiology CT angio head and neck: Radiologist's Impression: [address] [address] [address] Scan Report Signed Patient: Chente Platt MR#: [id number] : 1955 Acct:[id number] Age/Sex: 69 / F Date of Service: 01/03/25 Loc: ED Accession Number: [id number] Procedure: CT angio head and neck Ordering Provider: Sean Regan MD PROCEDURE: CT ANGIO HEAD AND NECK INDICATIONS: acute stroke TECHNIQUE: After the administration of intravenous contrast, 1 mm thick sections acquired from the aortic arch through the [place]. 3-dimensional dxaqfte-ehncfnamx-usbiatkzny (MIP) and/or volume rendering reformats were acquired of the central intracranial vasculature and neck separately. For radiation dose reduction, the following was used: automated exposure control, adjustment of mA and/or kV according to patient size. COMPARISON: [facility], CT, CT STROKE, 01/03/2025, 10:37. FINDINGS: Image quality: Diagnostic. Cerebral CT Angiogram: Internal carotid arteries: No acute findings. Intracranial ICA are patent with no significant stenosis. No occlusion. No aneurysm. 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 The distal right ELIDA is fed via a patent anterior communicating artery. No significant stenosis. No occlusion. No aneurysm. Middle cerebral arteries: Unremarkable. No significant stenosis. No occlusion. No aneurysm. Posterior cerebral arteries: type origin of the right INTELLIGENCE RESEARCH SPECIALIST, a normal anatomic variant. No significant stenosis. No occlusion. No aneurysm. Basilar artery: Unremarkable. No significant stenosis. No occlusion. No aneurysm. Vertebral arteries: Unremarkable as visualized. Dural venous sinuses: Unremarkable given phase of enhancement. Other: Please see the separately dictated report from the noncontrast CT of the head performed at the same time. No abnormal intracranial arterial-phase enhancement. Mucous retention cyst in the right maxillary sinus. Neck CT Angiogram: Internal carotid arteries: Unremarkable. No significant stenosis. No dissection or occlusion. Common carotid arteries: Unremarkable. No significant stenosis. No dissection or occlusion. External carotid arteries: Unremarkable. No occlusion. Vertebral arteries: Unremarkable. No significant stenosis. No dissection or occlusion. Aortic Arch and Mediastinum: Partially visualized aortic arch unremarkable without evidence of aneurysm. Origins of the great vessels unremarkable. Other: Pleural-parenchymal scarring at the right lung apex with superimposed surgical clips. Biapical centrilobular and paraseptal emphysema. Multiple mildly enlarged mediastinal lymph nodes are present, for example measuring 1.1 cm in short axis in the precarinal region (2/338). 1.1 cm left thyroid nodule does not require dedicated imaging follow-up based on ACR guidelines. Multilevel degenerative changes in the included spine. IMPRESSION: No significant intracranial arterial abnormality is seen. No significant abnormality is seen within the arteries of the neck. Postsurgical changes in the right lung apex. Mildly enlarged mediastinal lymph nodes are nonspecific. Any quantitative measurements of stenosis were performed using NASCET criteria. Approved by: Enrique Enrique M.D. on 01/03/2025 at 1 Discharge Plan Departure Patient Disposition: [facility] Clinical Impression: CVA (cerebral vascular accident), Acute non-ST elevation myocardial infarction (NSTEMI) Prescriptions: No Action sulfasalazine 500 mg tablet 1 gram PO DAILY hydroxychloroquine 200 mg tablet 200 mg PO DAILY pregabalin [Lyrica] 75 mg capsule 75 mg PO BID cyclobenzaprine 10 mg tablet 10 mg PO BID ibuprofen 600 mg tablet 600 mg PO TID sulfasalazine 500 mg tablet,delayed release (DR/EC) 1,000 mg PO BID venlafaxine 225 mg tablet extended release 24hr 225 mg PO DAILY lisinopril 10 mg tablet 10 mg PO DAILY trazodone 100 mg tablet 100 - 200 mg PO ONCE PM tocilizumab [Actemra ACTPen] SUBCUT
--- NOTE | 2025-01-03 11:06 | EKG_ITS ---
[address] [address] Test Date: 2025-01-03 Pat Name: Chente Platt Department: [facility] Room: Gender: Female [employer] Adviser: CELI : 1955 Requested By: Order Number: [id number] Reading MD: Riley Gannon Measurements Intervals [place] Rate: 77 P: 61 HI: 172 QRS: -8 QRSD: 88 T: 56 QT: 372 QTc: 420 Interpretive Statements Normal sinus rhythm Low voltage QRS Inferior infarct , age undetermined Cannot rule out Anterior infarct , age undetermined Electronically Signed On 01-03-2025 18:47:15 PDT by Riley Gannon
[2025-01-03 11:08] LABS: Alanine Aminotransferase 22 IU/L (<35); Albumin 4.6 g/dL (3.5-5.0); Albumin Globulin Ratio 1.9 (1.0-2.8); Alkaline Phosphatase 67 U/L (38-126); Blood Urea Nitrogen 13 mg/dL (7-17); Calcium 9.7 mg/dL (8.4-10.2); Carbon Dioxide 25 mmol/L (22-32); Chloride 109 mmol/L (98-107); Creatine Kinase 76 U/L (30-135); Estimated Glomerular Filt Rate > 60 mL/min (>60); Ethanol (ETOH) < 10 mg/dL (<10); Globulin 2.4 g/dL (1.7-4.1); Glucose 119 mg/dL (70-99); HEMOLYSIS 40 (0-50); Potassium 4.0 mmol/L (3.4-5.1); Sodium 140 mmol/L (137-145); Total Protein 7.0 g/dL (6.3-8.2)
[2025-01-03 11:23] LABS: Troponin I 0.603 ng/mL (0.01-0.034)
[2025-01-03 11:31] LABS: INR 1.0 (0.9-1.3); Prothrombin Time 11.8 SECONDS (9.4-12.5)
[2025-01-03 11:34] LABS: PTT Partial Thromboplastin Tim 26 SECONDS (25.1-36.5)
--- NOTE | 2025-01-03 11:37 | DI.MRI.S_ITS ---
PROCEDURE: MR HEAD/BRAIN WO/W CON INDICATIONS: stroke and suspicion of metastatic disease TECHNIQUE: Noncontrast axial T1 spin echo, axial T2 fast spin echo, sagittal and axial FLAIR, coronal T2 fast spin echo, axial gradient echo, axial diffusion and ADC through the brain. After the administration of contrast, axial and coronal and sagittal T1 spin echo with fat saturation through the brain. COMPARISON: [facility], CT, CT ANGIO HEAD AND NECK, 01/03/2025, 10:37. [facility], CT, CT STROKE, 01/03/2025, 10:37. FINDINGS: Image quality: Images are degraded by patient motion on multiple pulse sequences. Some diagnostic information is obtained. CSF spaces: Basal cisterns are patent. No extra-axial fluid collections. Ventricles are symmetric in size and shape. Brain: Patchy diffusion restriction in the left MCA territory including the left insula, posterior left frontal lobe, and caudate head. No hemorrhagic conversion. No significant mass effect or midline shift. Scattered tiny cortical foci of hyperintense signal are seen on diffusion-weighted imaging in the bilateral cerebral hemispheres, without convincing low ADC values. Scattered foci of T2/FLAIR hyperintense signal in the subcortical and periventricular white matter. No definite enhancing intracranial mass. Generalized cerebral and cerebellar parenchymal volume loss. Skull and face: Calvarial marrow is normal in signal. Orbits appear normal. Sinuses: Sinuses and mastoids appear clear. IMPRESSION: 1. Multifocal patchy diffusion restriction in the left MCA territory, compatible with recent infarct. No significant mass effect or hemorrhagic conversion. 2. Punctate foci of cortical diffusion restriction versus T2 shine through artifact in the bilateral cerebral hemispheres, possibly related to embolic infarcts versus tiny metastases. No definite associated postcontrast enhancement is seen although exam is degraded by significant patient motion. 3. Chronic microvascular ischemic changes and generalized parenchymal volume loss. Approved by: Enrique Enrique M.D. on 01/03/2025 at 16:05
[2025-01-03 12:16] LABS: COVID19 -Nasal RAPID Negative (Negative)
[2025-01-03] MEDS: ASPIRIN EC 325 MG TABLET PO (12:38)
[2025-01-03] MEDS: SODIUM CHLORIDE 0.9% 1,000 ML 1000 ML IV (12:39)
[2025-01-03 13:24] LABS: Troponin I 0.621 ng/mL (0.01-0.034)
[2025-01-03] MEDS: MIDAZOLAM 2 MG/2 ML VIAL IV (14:31)
[2025-01-03] MEDS: droPERidol 2.5 MG/ML VIAL 0.625 MG IV (14:31)
--- NOTE | 2025-01-03 15:45 | DI.CT.S_ITS ---
PROCEDURE: CT ANGIO CHEST PE PROTOCOL INDICATIONS: positive troponin and high dimer TECHNIQUE: After the administration of intravenous contrast, 2 mm thick sections acquired from the pulmonary apices to the posterior costophrenic angles. 3-dimensional maximum intensity projection (MIP) coronal and sagittal reformats were then acquired through the thorax. For radiation dose reduction, the following was used: automated exposure control, adjustment of mA and/or kV according to patient size. COMPARISON: None. FINDINGS: Image quality: Diagnostic. Some images are limited by beam hardening, patient motion or other artifacts. Markedly abnormal appearance of the chest with left lower lobe lateral basal rounded mass-like area of consolidation possible neoplasm, metastasis. Less likely to represent rounded pneumonia, rounded atelectasis. Follow-up is needed. In total this measures up to approximately 3.4 cm AP x 3.0 cm cc by 2.6 cm transverse maximal dimensions. Markedly abnormal appearance of the lungs with moderate COPD/emphysematous changes with centrilobular and paraseptal emphysema. Cavitation, abnormal pleural thickening/scarring versus recurrent mass in an area of surgical clips left apex medially in an area spanning up to approximately 3.5 cm. 1 cm nodule left upper lobe (axial series 5, image 44. Numerous areas of abnormal prominent interstitial markings, fibrotic changes predominantly in the lower lobes left greater than right. Abnormal peribronchial thickening diffusely predominantly in the lower lobes. Numerous abnormally enlarged mediastinal, prevascular, aortic or pulmonary, anterior tracheal, bilateral paratracheal, subcarinal and bilateral hilar lymph nodes the largest conglomeration subcarinal measuring up to 2.8 cm short axis more than expected for infectious/inflammatory nodes and pathologically enlarged, neoplastic, metastatic nodes, lymphoma or other process suspected. Follow-up is needed. She CIS mild pericardial effusion measures up to 1.5 cm anteriorly-inferiorly. Mild cardiomegaly with four-chamber enlargement but predominantly left atrial, left ventricular enlargement on a background of left ventricular hypertrophy measuring up to 2 cm thickness. Enlarged pulmonary artery outflow tract, right and left main pulmonary arteries measuring up to 3.4, 2.7, 2.7 cm diameter, pulmonary arterial hypertension. No definitive filling defect in the main, secondary or proximal tertiary pulmonary arteries. Evaluation of the distal pulmonary arteries is limited. Trace left pleural effusion. No pneumothorax. Mild dextroscoliosis of the thoracic spine some of which may be artifact from positioning. Degenerative changes of the thoracic spine without CT evidence of fracture or subluxation. Severe degenerative changes of the bilateral glenohumeral joints right greater than left. Images in the upper abdomen demonstrate mild nonspecific wall thickening distal esophagus into the stomach partially imaged commonly artifact from partial nondistention although gastritis or other process could be considered. Thyroid: 1.5 cm left thyroid nodule and moderately enlarged thyroid gland. Thyroid ultrasound could be considered. Axillae: No enlarged lymph nodes. Thoracic Vessels: Mildly dilated ascending aorta 4.0 cm. IMPRESSION: Abnormal appearance of the chest as discussed above with left lower lobe suspected nodule/mass , abnormally enlarged mediastinal lymph nodes, prominent interstitial markings, peribronchial thickening, right upper lobe cavitation and pleural thickening possible recurrent mass. Left upper lobe lung nodule. Mild pericardial effusion, cardiomegaly, 4.0 cm aortic aneurysm. Other findings as above. Follow-up is needed. No definitive filling defect to suggest pulmonary embolism. Limited exam. Dictated by: Harjeet Montiel M.D. on 01/03/2025 at 16:11 Approved by: Harjeet Montiel M.D. on 01/03/2025 at 16:25
[2025-01-03 15:46] LABS: Ur Creatinine Normal (Normal); Ur Specific Gravity Normal (Normal); Urine MDMA Negative (Negative); Urine Methamphetamines Negative (Negative); Urine THC Negative (Negative); Urine Tricyclic Antidepressant Positive (Negative); Urine pH Normal (Normal)
[2025-01-03 15:52] LABS: Appearance Urine UA CLEAR; Bilirubin Urine UA NEGATIVE (NEGATIVE); Color Urine UA YELLOW; Glucose Urine UA NEGATIVE (Negative); Ketones Urine UA NEGATIVE (NEGATIVE); Leukocyte Esterase Urine UA NEGATIVE (NEGATIVE); Nitrite Urine UA NEGATIVE (Negative); Occult Blood Urine UA NEGATIVE (Negative); Protein Urine UA NEGATIVE (Negative); Specific Gravity Urine UA <=1.005 (1.000-1.035); Urobilinogen Urine UA 0.2 E.U./dL (0.2)
[2025-01-03 15:57] LABS: Troponin I 0.756 ng/mL (0.01-0.034)
[2025-01-03 15:57] LABS: pH Urine UA 5.5 (4.5-8.0)
[2025-01-03 16:05] LABS: Culture Indicated Urine Cult Not Indicated
[2025-01-03] MEDS: MIDAZOLAM 2 MG/2 ML VIAL 4 MG IV (18:31)
--- NOTE | 2025-01-03 20:26 | PC.NURSE ---
According to power electronics research engineer Holly. RN to RN report not required for [place] transfer. Report given to NWA prior to transport.
== END 2025-01-03 20:28 | disposition short-term general hospital (02) ==
PROVIDERS: Emergency Medicine; Emergency Provider Emergency Medicine
DX: I21.4 Non-ST elevation (NSTEMI) myocardial infarction (principal); I63.9 Cerebral infarction, unspecified; R29.714 NIHSS score 14
CPT/HCPCS: 36415; 70450; 70496; 70498; 70553; 71275; 80053; 80305; 80320; 81001; 82550; 82962; 84484; 85025; 85379; 85610; 85730; 87635; 93005; 96374; 96375; 96376; 99285; 99291; A9579; J1790; J2250; J3360; J7030; Q9967